=== PATIENT | female | born 1975 | race Caucasian/White ===

== ENCOUNTER 2016-12-25 23:05 | Emergency (ER) | payer MEDICAID, MEDICARE ==
[~2016-12-25 23:05] MED LIST: ACETYLCYSTEINE IV ONE; DEXTROSE 5% IV ONE; WATER IV ONE
[2016-12-25] MEDS ORDERED: Acetylcysteine 20% 200 MG/ML 30 ML SDV IV ONE (23:35)
[2016-12-25] MEDS ORDERED: Sodium Chloride 0.9% 10 ML Syringe FLUSH PRN (23:35)
[2016-12-25 23:55] LABS: ACETAMINOPHEN 198.7 ug/mL (10.0-30.0)
[2016-12-26 00:01] VITALS: BP 114/75
[2016-12-26] MEDS ORDERED: Sodium Chloride 0.9% 1,000 ML IV SCH (00:15)
--- NOTE | 2016-12-26 01:01 | EDM.PDOC ---
ED HPI Behavioral Health - General Chief Complaint: Behavioral/Psych Stated Complaint: MED [facility] Time Seen by Provider: 12/25/16 23:34 Source: Reports: Patient, EMS Exam Limitations: Reports: Altered mental status - History of Present Illness INITIAL COMMENTS - FREE TEXT/NARRATIVE: This is a 41-year-old white female brought to the emergency department for a drug overdose and self-inflicted laceration to her left wrist. She was found by her boyfriend who called EMS. She allegedly took 20 extra strength Tylenol tablets at 10 PM, or 10 g. She also took 7 tablets of Xanax 1 mg. She lacerated her left forearm. She is very distraught about a significant other. It sounded like she was angry with her or former . EMS noted a lot of bleeding to the wrist and this was controlled by direct pressure. The patient admits she was trying to hurt herself. - SAD Persons Scale (SPS) SPS Sex: Female SPS Age: Between 18-65 Years of Age SPS Depression: Yes SPS Previous Suicide Attempts: No SPS Alcohol Abuse/Drug Abuse: No SPS Rational Thinking Loss: No SPS Social Support Deficit: Yes SPS Organized Suicide Plan: Yes SPS No Spouse/Significant Other: No SPS Sickness: No SPS Sad Person Scale Score: 3 - Related Data Allergies Allergy/AdvReac Type Severity Reaction Status Date / Time pine Allergy Airway Uncoded 12/25/16 23:33 Tightness Home Medications: Home Meds ALPRAZolam [Alprazolam] 1 mg PO BID PRN 04/13/15 [History] Meclizine [Antivert] 25 mg PO TID 04/13/15 [History] Acetaminophen [Tylenol Extra Strength] 500 mg PO ASDIRECTED PRN 12/25/16 [ History] hips, back, and wrist Pain Score (Numeric/FACES): 8 Past Medical History HEENT History: Reports: Impaired vision Gastrointestinal History: Reports: Chronic constipation 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: Musculoskeletal History: Reports: Other (see below) Other Musculoskeletal History: degenerative disc disease Neurological History: Reports: Concussion Psychiatric History: Reports: Anxiety, Depression - Infectious Disease History Infectious Disease History: Reports: Chicken pox - Past Surgical History GI Surgical History: Reports: Cholecystectomy Female Surgical History: Reports: Tubal ligation Musculoskeletal Surgical History: Reports: None Social & Family History - Tobacco Use Smoking Status *Q: Current Every Day Smoker Years of Tobacco use: 17 Packs/Tins Daily: 1 - Caffeine Use Caffeine Use: Reports: Coffee - Recreational Drug Use Recreational Drug Use: No ED ROS GENERAL - Review of Systems Review Of Systems: Unable To Obtain (The patient is moderately sedated so review of systems is unreliable) ED EXAM, BEHAVIORAL HEALTH - Physical Exam Exam: See Below Exam Limited By: Altered mental status General Appearance: WD/WN, lethargic (This lady appears to be moderately sedated she is however able to answer questions), mild distress Eye Exam: bilateral eye: EOMI, PERRL Nose: normal inspection Throat/Mouth: Normal inspection Head: atraumatic Neck: normal inspection Respiratory/Chest: lungs clear Cardiovascular: normal peripheral pulses, regular rate, rhythm, no murmur GI/Abdominal: soft, non tender Back Exam: normal inspection Extremities: other (There is a laceration to the volar surface of the left distal forearm. The laceration is approximately 4 cm long and transverse. It is a the superficial flexor tendons. There is a palpable radial pulse distal to the laceration. The depth of the laceration indicates there would likely be a median nerve injury. The wound is clean. A compression dressing had been previously applied followed by a tourniquet which had cut off circulation to the hand. Removal of the tourniquet resulted in normal blood flow to the hand.) Neurological: abnormal pin prick (Pinprick exam was done which was inconclusive. She does have sensation in the distribution of the median nerve although some areas appear to be somewhat dull and others sharp. There was no definite areas of anesthesia to either the median radial or ulnar nerve distributions. Her level of sedation makes this exam unreliable however) COURSE, BEHAVIORAL HEALTH COMP - Course Vital Signs: Last Vital Signs Temp 36.9 C 12/25/16 23:19 Pulse 80 12/26/16 00:00 Resp 16 12/26/16 00:00 BP 114/75 12/26/16 00:00 Pulse Ox 99 12/26/16 00:00 Orders, Labs, Meds: Active Orders 24 hr Category Date Time Status EKG Documentation Completion [RC] ASDIRECTED Care 12/25/16 23:36 Active Sodium Chloride 0.9% [Normal Saline] 1,000 ml Med 12/26/16 00:15 Active IV ASDIRECTED Sodium Chloride 0.9% [Saline Flush] Med 12/25/16 23:35 Active 10 ml FLUSH ASDIRECTED PRN Saline Lock Insert [OM.PC] Urgent Oth 12/25/16 23:35 Ordered EKG 12 Lead [EK] Urgent Ther 12/25/16 23:35 Ordered Medication Orders Sodium Chloride (Normal Saline) 1,000 mls @ 250 mls/hr IV ASDIRECTED AYESHA Sodium Chloride (Saline Flush) 10 ml FLUSH ASDIRECTED PRN PRN Reason: Keep Vein Open Laboratory Tests 12/25/16 12/25/16 12/25/16 Range/Units 23:35 23:35 23:35 WBC 6.4 (4.5-11.0) K/uL RBC 4.44 (3.30-5.50) M/uL Hgb 13.4 (12.0-15.0) g/dL Hct 40.1 (36.0-48.0) % MCV 90 (80-98) fL MCH 30 (27-31) pg MCHC 33 (32-36) % Plt Count 217 (150-400) K/uL Neut % (Auto) 58 (36-66) % Lymph % (Auto) 32 (24-44) % [place] % (Auto) 8 H (2-6) % Eos % (Auto) 1 L (2-4) % Baso % (Auto) 1 (0-1) % Sodium 141 (140-148) mmol/L Potassium 3.1 L (3.6-5.2) mmol/L Chloride 104 (100-108) mmol/L Carbon Dioxide 24 (21-32) mmol/L Anion Gap 16.1 H (5.0-14.0) mmol/L BUN 13 (7-18) mg/dL Creatinine 0.9 (0.6-1.0) mg/dL Est Cr Clr Drug Dosing 81.39 mL/min Estimated GFR (MDRD) > 60 (>60) Glucose 139 H (74-106) mg/dL Calcium 8.2 L (8.5-10.1) mg/dL Total Bilirubin 0.5 D (0.2-1.0) mg/dL AST 10 L D (15-37) U/L ALT 13 (12-78) U/L Alkaline Phosphatase 54 (46-116) U/L Total Protein 7.3 (6.4-8.2) g/dL Albumin 3.7 (3.4-5.0) g/dL Globulin 3.6 H (2.3-3.5) g/dL Albumin/Globulin Ratio 1.0 L (1.2-2.2) Urine Color Urine Appearance Urine pH (4.5-8.0) Ur Specific Harrison (1.008-1.030) Urine Protein (NEGATIVE) mg/dL Urine Glucose (UA) (NEGATIVE) mg/dL Urine Ketones (NEGATIVE) mg/dL Urine Occult Blood (NEGATIVE) Urine Nitrite (NEGATIVE) Urine Bilirubin (NEGATIVE) Urine Urobilinogen (NORMAL) mg/dL Ur Leukocyte Esterase (NEGATIVE) Urine RBC (0-5) Urine WBC (0-5) Ur Epithelial Cells Amorphous Sediment Urine Bacteria Urine Mucus Salicylates 3.3 (2.0-20.0) mg/dL Urine Opiates Screen (NEGATIVE) Ur Oxycodone Screen (NEGATIVE) Urine Methadone Screen (NEGATIVE) Ur Propoxyphene Screen (NEGATIVE) Acetaminophen 198.7 H (10.0-30.0) ug/mL Ur Barbiturates Screen (NEGATIVE) Ur Tricyclics Screen (NEGATIVE) Ur Phencyclidine Scrn (NEGATIVE) Ur Amphetamine Screen (NEGATIVE) U Methamphetamines Scrn (NEGATIVE) Urine MDMA Screen (NEGATIVE) U Benzodiazepines Scrn (NEGATIVE) U Cocaine Metab Screen (NEGATIVE) U Marijuana (THC) Screen (NEGATIVE) Ethyl Alcohol mg/dL 12/25/16 12/25/16 12/25/16 Range/Units 23:35 23:40 23:40 WBC (4.5-11.0) K/uL RBC (3.30-5.50) M/uL Hgb (12.0-15.0) g/dL Hct (36.0-48.0) % MCV (80-98) fL MCH (27-31) pg MCHC (32-36) % Plt Count (150-400) K/uL Neut % (Auto) (36-66) % Lymph % (Auto) (24-44) % [place] % (Auto) (2-6) % Eos % (Auto) (2-4) % Baso % (Auto) (0-1) % Sodium (140-148) mmol/L Potassium (3.6-5.2) mmol/L Chloride (100-108) mmol/L Carbon Dioxide (21-32) mmol/L Anion Gap (5.0-14.0) mmol/L BUN (7-18) mg/dL Creatinine (0.6-1.0) mg/dL Est Cr Clr Drug Dosing mL/min Estimated GFR (MDRD) (>60) Glucose (74-106) mg/dL Calcium (8.5-10.1) mg/dL Total Bilirubin (0.2-1.0) mg/dL AST (15-37) U/L ALT (12-78) U/L Alkaline Phosphatase (46-116) U/L Total Protein (6.4-8.2) g/dL Albumin (3.4-5.0) g/dL Globulin (2.3-3.5) g/dL Albumin/Globulin Ratio (1.2-2.2) Urine Color Yellow Urine Appearance Slightly cloudy Urine pH 5.0 (4.5-8.0) Ur Specific [place] 1.025 (1.008-1.030) Urine Protein Negative (NEGATIVE) mg/dL Urine Glucose (UA) Normal (NEGATIVE) mg/dL Urine Ketones Negative (NEGATIVE) mg/dL Urine Occult Blood Negative (NEGATIVE) Urine Nitrite Negative (NEGATIVE) Urine Bilirubin Small (NEGATIVE) Urine Urobilinogen 1 (NORMAL) mg/dL Ur Leukocyte Esterase Negative (NEGATIVE) Urine RBC 0-5 (0-5) Urine WBC 0-5 (0-5) Ur Epithelial Cells Few Amorphous Sediment Few Urine Bacteria Many Urine Mucus Many Salicylates (2.0-20.0) mg/dL Urine Opiates Screen Negative (NEGATIVE) Ur Oxycodone Screen Negative (NEGATIVE) Urine Methadone Screen Negative (NEGATIVE) Ur Propoxyphene Screen Negative (NEGATIVE) Acetaminophen (10.0-30.0) ug/mL Ur Barbiturates Screen Negative (NEGATIVE) Ur Tricyclics Screen Negative (NEGATIVE) Ur Phencyclidine Scrn Negative (NEGATIVE) Ur Amphetamine Screen Negative (NEGATIVE) U Methamphetamines Scrn Negative (NEGATIVE) Urine MDMA Screen Negative (NEGATIVE) U Benzodiazepines Scrn Positive H (NEGATIVE) U Cocaine Metab Screen Negative (NEGATIVE) U Marijuana (THC) Screen Negative (NEGATIVE) Ethyl Alcohol < 3 mg/dL Medications Generic Name Dose Route Start Last Admin Trade Name Freq PRN Reason Stop Dose Admin Sodium Chloride 1,000 mls @ 250 mls/hr 12/26/16 00:15 Normal Saline IV ASDIRECTED AYESHA Sodium Chloride 10 ml 12/25/16 23:35 Saline Flush FLUSH ASDIRECTED PRN Keep Vein Open Discontinued Medications Generic Name Dose Route Start Last Admin Trade Name Deisi PRN Reason Stop Dose Admin Acetylcysteine 10,000 mg/ 300 mls @ 300 mls/hr 12/25/16 23:00 12/26/16 00:10 Dextrose/Water IV 12/25/16 23:59 300 mls/hr ONETIME ONE Administration Re-Assessment/Re-Exam: Initial acetaminophen level of 298 at approximately 2 hours post ingestion. This suggests her peak level will be substantially higher. This puts her in the toxic range. I spoke with the on-call orthopedic surgeon, the ER doctor and hospitalist at [facility] in [place]. It is felt that the tendon and possible nerve lacerations can be repaired later. She will need hospitalization for the acetaminophen overdose as well as the suicide attempt. We have started a bolus of an acetyl cysteine 140mg/kg for 10 g here in the ER. I don't anticipate severe liver damage so I think the [facility] should be able to manage her. This was discussed with . I also felt that it would be best for her injuries to be examined by a someone with more expertise than myself. Departure - Departure Time of Disposition: 01:06 Disposition: DC/Tfer to Acute Hospital 02 Condition: fair Clinical Impression: Acetaminophen overdose, Laceration of wrist with tendon involvement, Suicide attempt Forms: ED Department Discharge - My Orders Last 24 Hours: My Active Orders 12/25/16 23:35 Sodium Chloride 0.9% [Saline Flush] 10 ml FLUSH ASDIRECTED PRN Saline Lock Insert [OM.PC] Urgent EKG 12 Lead [EK] Urgent 12/25/16 23:36 EKG Documentation Completion [RC] ASDIRECTED 12/26/16 00:15 Sodium Chloride 0.9% [Normal Saline] 1,000 ml IV ASDIRECTED - Assessment/Plan Last 24 Hours: My Active Orders 12/25/16 23:35 Sodium Chloride 0.9% [Saline Flush] 10 ml FLUSH ASDIRECTED PRN Saline Lock Insert [OM.PC] Urgent EKG 12 Lead [EK] Urgent 12/25/16 23:36 EKG Documentation Completion [RC] ASDIRECTED 12/26/16 00:15 Sodium Chloride 0.9% [Normal Saline] 1,000 ml IV ASDIRECTED
== END 2016-12-26 01:24 ==
LOC: JP.ED 23:05
DX: T39.1X2A Poisoning by 4-Aminophenol derivatives, intentional self-harm, initial encounter (principal); T42.4X2A Poisoning by benzodiazepines, intentional self-harm, initial encounter; S66.022A Laceration of long flexor muscle, fascia and tendon of left thumb at wrist and hand level, initial encounter; S61.512A Laceration without foreign body of left wrist, initial encounter; X78.9XXA Intentional self-harm by unspecified sharp object, initial encounter; F17.210 Nicotine dependence, cigarettes, uncomplicated; Z90.89 Acquired absence of other organs; Z98.51 Tubal ligation status; W26.0XXA Contact with knife, initial encounter; F41.9 Anxiety disorder, unspecified; F32.9 Major depressive disorder, single episode, unspecified; K59.09 Other constipation; Z79.899 Other long term (current) drug therapy; Z91.048 Other nonmedicinal substance allergy status
CPT/HCPCS: 36415; 80053; 80305; 81001; 85025; 93005; 93010; 96360; 99285; G0480; J7040; J7060

== ENCOUNTER 2017-02-26 23:25 | Emergency (ER) | payer MEDICAID, MEDICARE ==
[2017-02-27] MEDS ORDERED: Ondansetron 4 MG/2 ML SDV IVPUSH ONE (01:13)
[2017-02-27] MEDS ORDERED: Sodium Chloride 0.9% 10 ML Syringe FLUSH PRN (01:13)
[2017-02-27] MEDS ORDERED: HYDROmorphone 1 MG/ML Syringe IVPUSH ONE ×3 (01:13→07:35)
[2017-02-27] MEDS ORDERED: Sodium Chloride 0.9% 1,000 ML IV SCH (01:15)
--- NOTE | 2017-02-27 01:18 | EDM.PDOC ---
ED HPI GENERAL MEDICAL PROBLEM - General Chief Complaint: Abdominal Pain Stated Complaint: FEVER NOT FEELING WELL Time Seen by Provider: 02/27/17 01:02 Source of Information: Reports: Patient, Family, RN Notes Reviewed History Limitations: Reports: No Limitations - History of Present Illness INITIAL COMMENTS - FREE TEXT/NARRATIVE: 41-year-old female presents emergency department today complaint abdominal pain , she has had ongoing abdominal pain and bloody diarrhea for the last 3 weeks she has been evaluated by her primary care provider CT scan and colonoscopy have been ordered unfortunately they were initially denied by insurance and are currently being reviewed. She presents emergency department today because she's developed fever over the last couple days and the pain is getting worse and has developed nausea. 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: Musculoskeletal History: Reports: Back Pain, Chronic Other Musculoskeletal History: degenerative disc disease Neurological History: Reports: Concussion Psychiatric History: Reports: Anxiety, Depression - Infectious Disease History Infectious Disease History: Reports: Chicken Pox - Past Surgical History GI Surgical History: Reports: Cholecystectomy, Colonoscopy, Polypectomy Other GI Surgeries/Procedures: 17 polypes removed 10 years ago Female Surgical History: Reports: Tubal Ligation Social & Family History - Tobacco Use Smoking Status *Q: Former Smoker Years of Tobacco use: 17 Packs/Tins Daily: 1 Used Tobacco, but Quit: Yes Month Tobacco Last Used: 2 months ago - Caffeine Use Caffeine Use: Reports: Coffee, Soda - Recreational Drug Use Recreational Drug Use: No ED ROS GENERAL - Review of Systems Review Of Systems: See Below Constitutional: Reports: Fever, Chills, Weakness HEENT: Reports: No Symptoms Respiratory: Reports: No Symptoms Cardiovascular: Reports: No Symptoms GI/Abdominal: Reports: Abdominal Pain, Bloody Stool, Diarrhea, Nausea. Denies: Vomiting : Reports: No Symptoms Musculoskeletal: Reports: No Symptoms Skin: Reports: No Symptoms Neurological: Reports: No Symptoms ED EXAM, GI/ABD - Physical Exam Exam: See Below Text/Narrative:: General: Female, moderate discomfort secondary to abdominal pain, alert and oriented x3 HEENT: head is atraumatic normocephalic, eyes pupils equal round reactive to light, sclera clear no conjunctivitis appreciated. Ears tympanic membranes clear and osei landmarks and light reflex are present bilaterally canals are clear. Nose no septal deviation, nares are clear, no blood present. Mouth mucosa is moist and pink no erythema or exudate noted in soft palate, tongue is midline uvula is midline, dentition is intact. Neck: Supple no thyromegaly no tracheal deviation. Nodes: Cervical nodes subclavicular nodes nontender no palpable lymphadenopathy noted. Lungs: clear to auscultation bilaterally with symmetrical respirations, no adventitious noise appreciated. CV: Regular rate and rhythm S1 and S2 appreciated no murmurs rubs or gallops noted. Abdomen: Soft, generalized tenderness to palpation, no palpable masses or organomegaly appreciated, no distention no guarding bowel sounds are present, surgical scar is clean dry and intact. Neuro: Cranial nerves II through XII grossly intact Skin: Warm and dry, intact Extremities: No lower extremity edema appreciated Course - Vital Signs Last Recorded V/S: Last Vital Signs Temp 98.1 F 02/27/17 06:59 Pulse 103 H 02/27/17 06:59 Resp 16 02/27/17 06:59 BP 96/60 02/27/17 06:59 Pulse Ox 97 02/27/17 06:59 - Orders/Labs/Meds Orders: Active Orders 24 hr Category Date Time Status Peripheral IV Care [RC] . DIRECTED Care 02/27/17 01:14 Active Abdomen Pelvis w Cont [CT] Urgent Exams 02/27/17 01:13 Taken CULTURE BLOOD [BC] Urgent Lab 02/27/17 03:05 Received CULTURE BLOOD [BC] Urgent Lab 02/27/17 03:10 Received CULTURE STOOL + SHIGATOX [RM] Stat Lab 02/27/17 03:44 Received GIARDIA LAMBLIA ANTIGEN Stat Lab 02/27/17 03:44 Received Iopamidol [Isovue-300 (61%)] Med 02/27/17 02:11 Active 100 ml IV . DIRECTED PRN Sodium Chloride 0.9% [Normal Saline] 1,000 ml Med 02/27/17 01:15 Active IV ASDIRECTED Sodium Chloride 0.9% [Normal Saline] 72 ml Med 02/27/17 02:15 Active IV ASDIRECTED Sodium Chloride 0.9% [Saline Flush] Med 02/27/17 01:13 Active 10 ml FLUSH ASDIRECTED PRN Blood Culture x2 Reflex Set [OM.PC] Urgent Ot 02/27/17 02:58 Ordered ED Antiemetic Medication Reflex [OM.PC] Click to Edit Ot 02/27/17 01:13 Ordered ED Pain Medications Reflex [OM.PC] Click to Edit Ot 02/27/17 01:13 Ordered Peripheral IV Insertion Adult [OM.PC] Urgent Ot 02/27/17 01:13 Ordered Medication Orders Sodium Chloride (Normal Saline) 1,000 mls @ 500 mls/hr IV ASDIRECTED [facility] Last Admin: 02/27/17 02:01 Dose: 500 mls/hr Sodium Chloride (Normal Saline) 72 mls @ 3 mls/sec IV ASDIRECTED AYESHA Last Admin: 02/27/17 02:22 Dose: 3 mls/sec Iopamidol (Isovue-300 (61%)) 100 ml IV . DIRECTED PRN PRN Reason: RADIOLOGY EXAM Stop: 02/28/17 02:12 Last Admin: 02/27/17 02:22 Dose: 100 ml Sodium Chloride (Saline Flush) 10 ml FLUSH ASDIRECTED PRN PRN Reason: Keep Vein Open Last Admin: 02/27/17 03:03 Dose: 10 ml Labs: Laboratory Tests 02/27/17 02/27/17 02/27/17 Range/Units 01:13 01:13 01:13 WBC 10.0 (4.5-11.0) K/uL RBC 3.48 (3.30-5.50) M/uL Hgb 10.3 L D (12.0-15.0) g/dL Hct 31.1 L (36.0-48.0) % MCV 89 (80-98) fL MCH 30 (27-31) pg MCHC 33 (32-36) % Plt Count 316 (150-400) K/uL Add Manual Diff Yes Neutrophils % (Manual) 57 (36-66) % Band Neutrophils % 13 H (5-11) % Lymphocytes % (Manual) 15 L (24-44) % Monocytes % (Manual) 13 H (2-6) % Eosinophils % (Manual) 2 (2-4) % Sodium 139 L (140-148) mmol/L Potassium 2.8 L* (3.6-5.2) mmol/L Chloride 102 (100-108) mmol/L Carbon Dioxide 25 (21-32) mmol/L Anion Gap 14.8 H (5.0-14.0) mmol/L BUN 8 (7-18) mg/dL Creatinine 0.6 (0.6-1.0) mg/dL Est Cr Clr Drug Dosing 124.70 mL/min Estimated GFR (MDRD) > 60 (>60) Glucose 91 (74-106) mg/dL Lactic Acid 0.8 (0.4-2.0) mmol/L Calcium 7.3 L (8.5-10.1) mg/dL Total Bilirubin 0.3 (0.2-1.0) mg/dL AST 12 L (15-37) U/L ALT 10 L (12-78) U/L Alkaline Phosphatase 60 (46-116) U/L Total Protein 5.1 L (6.4-8.2) g/dL Albumin 1.7 L (3.4-5.0) g/dL Globulin 3.4 (2.3-3.5) g/dL Albumin/Globulin Ratio 0.5 L (1.2-2.2) Lipase 56 L (73-393) U/L Urine Color Urine Appearance Urine pH (4.5-8.0) Ur Specific [place] (1.008-1.030) Urine Protein (NEGATIVE) mg/dL Urine Glucose (UA) (NEGATIVE) mg/dL Urine Ketones (NEGATIVE) mg/dL Urine Occult Blood (NEGATIVE) Urine Nitrite (NEGATIVE) Urine Bilirubin (NEGATIVE) Urine Urobilinogen (NORMAL) mg/dL Ur Leukocyte Esterase (NEGATIVE) Urine RBC (0-5) Urine WBC (0-5) Ur Epithelial Cells Amorphous Sediment Urine Bacteria Urine Mucus Urine HCG, Qual 02/27/17 02/27/17 Range/Units 01:55 01:55 WBC (4.5-11.0) K/uL RBC (3.30-5.50) M/uL Hgb (12.0-15.0) g/dL Hct (36.0-48.0) % MCV (80-98) fL MCH (27-31) pg MCHC (32-36) % Plt Count (150-400) K/uL Add Manual Diff Neutrophils % (Manual) (36-66) % Band Neutrophils % (5-11) % Lymphocytes % (Manual) (24-44) % Monocytes % (Manual) (2-6) % Eosinophils % (Manual) (2-4) % Sodium (140-148) mmol/L Potassium (3.6-5.2) mmol/L Chloride (100-108) mmol/L Carbon Dioxide (21-32) mmol/L Anion Gap (5.0-14.0) mmol/L BUN (7-18) mg/dL Creatinine (0.6-1.0) mg/dL Est Cr Clr Drug Dosing mL/min Estimated GFR (MDRD) (>60) Glucose (74-106) mg/dL Lactic Acid (0.4-2.0) mmol/L Calcium (8.5-10.1) mg/dL Total Bilirubin (0.2-1.0) mg/dL AST (15-37) U/L ALT (12-78) U/L Alkaline Phosphatase (46-116) U/L Total Protein (6.4-8.2) g/dL Albumin (3.4-5.0) g/dL Globulin (2.3-3.5) g/dL Albumin/Globulin Ratio (1.2-2.2) Lipase (73-393) U/L Urine Color Yellow Urine Appearance Clear Urine pH 6.0 (4.5-8.0) Ur Specific [place] 1.010 (1.008-1.030) Urine Protein Negative (NEGATIVE) mg/dL Urine Glucose (UA) Normal (NEGATIVE) mg/dL Urine Ketones Negative (NEGATIVE) mg/dL Urine Occult Blood Negative (NEGATIVE) Urine Nitrite Negative (NEGATIVE) Urine Bilirubin Negative (NEGATIVE) Urine Urobilinogen Normal (NORMAL) mg/dL Ur Leukocyte Esterase Negative (NEGATIVE) Urine RBC 0-5 (0-5) Urine WBC 0-5 (0-5) Ur Epithelial Cells Few Amorphous Sediment Not seen Urine Bacteria Few Urine Mucus Not seen Urine HCG, Qual Negative Meds: Medications Generic Name Dose Route Start Last Admin Trade Name Freq PRN Reason Stop Dose Admin Sodium Chloride 1,000 mls @ 500 mls/hr 02/27/17 01:15 02/27/17 02:01 Normal Saline IV 500 mls/hr ASDIRECTED AYESHA Administration Sodium Chloride 72 mls @ 3 mls/sec 02/27/17 02:15 02/27/17 02:22 Normal Saline IV 3 mls/sec ASDIRECTED AYESHA Administration Iopamidol 100 ml 02/27/17 02:11 02/27/17 02:22 Isovue-300 (61%) IV 02/28/17 02:12 100 ml . DIRECTED PRN Administration RADIOLOGY EXAM Sodium Chloride 10 ml 02/27/17 01:13 02/27/17 03:03 Saline Flush FLUSH 10 ml ASDIRECTED PRN Administration Keep Vein Open Discontinued Medications Generic Name Dose Route Start Last Admin Trade Name Freq PRN Reason Stop Dose Admin Hydromorphone HCl 0.5 mg 02/27/17 01:13 02/27/17 02:04 Dilaudid IVPUSH 02/27/17 01:14 0.5 mg .ONETIME ONE Administration Hydromorphone HCl 1 mg 02/27/17 03:13 02/27/17 03:21 Dilaudid IVPUSH 02/27/17 03:14 1 mg ONETIME ONE Administration Potassium Chloride 40 meq/ 100 mls @ 25 mls/hr 02/27/17 02:46 02/27/17 02:59 Premix IV 02/27/17 06:45 25 mls/hr ONETIME ONE Administration Lidocaine HCl 4 ml 02/27/17 02:48 02/27/17 02:59 Xylocaine-Mpf 1% INJECT 02/27/17 02:49 4 ml ONETIME ONE Administration Methylprednisolone Sodium Succinate 125 mg 02/27/17 07:14 Solu-Medrol IVPUSH 02/27/17 07:15 ONETIME ONE Ondansetron HCl 4 mg 02/27/17 01:13 02/27/17 02:02 Zofran IVPUSH 02/27/17 01:14 4 mg ONETIME ONE Administration Potassium Chloride 40 meq 02/27/17 02:46 02/27/17 03:01 Klor-Con M20 PO 02/27/17 02:47 40 meq ONETIME ONE Administration Departure - Departure Time of Disposition: 07:23 Disposition: Home, Self-Care 01 Condition: good Clinical Impression: Bloody diarrhea - Discharge Information Forms: ED Department Discharge Additional Instructions: Please start the prednisone tomorrow this is a tapered dose for about 3 weeks, use Zofran as needed for nausea and vomiting symptoms, use hydrocodone as needed for pain control, you have a colonoscopy set up for 7 AM Wednesday morning, please start your colonoscopy prep today, call returned at emergency department with worsening of symptoms - My Orders Last 24 Hours: My Active Orders 02/27/17 01:13 Abdomen Pelvis w Cont [CT] Urgent Sodium Chloride 0.9% [Saline Flush] 10 ml FLUSH ASDIRECTED PRN ED Antiemetic Medication Reflex [OM.PC] Click to Edit ED Pain Medications Reflex [OM.PC] Click to Edit Peripheral IV Insertion Adult [OM.PC] Urgent 02/27/17 01:14 Peripheral IV Care [RC] . DIRECTED 02/27/17 01:15 Sodium Chloride 0.9% [Normal Saline] 1,000 ml IV ASDIRECTED 02/27/17 02:11 Iopamidol [Isovue-300 (61%)] 100 ml IV . DIRECTED PRN 02/27/17 02:15 Sodium Chloride 0.9% [Normal Saline] 72 ml IV ASDIRECTED 02/27/17 02:58 Blood Culture x2 Reflex Set [OM.PC] Urgent 02/27/17 03:05 CULTURE BLOOD [BC] Urgent 02/27/17 03:10 CULTURE BLOOD [BC] Urgent 02/27/17 03:44 CULTURE STOOL + SHIGATOX [RM] Stat GIARDIA LAMBLIA ANTIGEN Stat - Assessment/Plan Last 24 Hours: My Active Orders 02/27/17 01:13 Abdomen Pelvis w Cont [CT] Urgent Sodium Chloride 0.9% [Saline Flush] 10 ml FLUSH ASDIRECTED PRN ED Antiemetic Medication Reflex [OM.PC] Click to Edit ED Pain Medications Reflex [OM.PC] Click to Edit Peripheral IV Insertion Adult [OM.PC] Urgent 02/27/17 01:14 Peripheral IV Care [RC] . DIRECTED 02/27/17 01:15 Sodium Chloride 0.9% [Normal Saline] 1,000 ml IV ASDIRECTED 02/27/17 02:11 Iopamidol [Isovue-300 (61%)] 100 ml IV . DIRECTED PRN 02/27/17 02:15 Sodium Chloride 0.9% [Normal Saline] 72 ml IV ASDIRECTED 02/27/17 02:58 Blood Culture x2 Reflex Set [OM.PC] Urgent 02/27/17 03:05 CULTURE BLOOD [BC] Urgent 02/27/17 03:10 CULTURE BLOOD [BC] Urgent 02/27/17 03:44 CULTURE STOOL + SHIGATOX [RM] Stat GIARDIA LAMBLIA ANTIGEN Stat Plan: Assessment Acuity = acute Site and laterality = abdominal pain with bloody diarrhea Etiology = suspicious for ulcerative colitis Manifestations = nausea and vomiting Location of injury = home Lab values = hemoglobin low at 10.3 consistent normochromic anemia sodium low at 139 consistent hyponatremia potassium low at 2.8 hypokalemia albumin low at 1.7 consistent hypoalbuminemia, urinalysis unremarkable CT scan shows acute inflammatory infectious etiology involving large bowel predominantly involving sigmoid and descending colon mild degree involvement extends in the rectum consideration of ulcerative colitis in the differential, few WBCs appreciated in the stool sample, Clostridium difficile is negative, Giardia is pending, open parasites are pending CT scan also shows asymmetric sclerosis of the SI joints concern for development of early ankylosing spondylosis Plan Discussed case with Dr. Bradley surgeon unit controller recommended colonoscopy she will be set up for colonoscopy on Wednesday morning at 7 AM she'll start the prep today, discussed case with hospitalist unit controller recommend starting steroids was given 125 mg Solu-Medrol IV today we'll start a prednisone taper tomorrow 60 mg 5 days then 40 mg 7 days 20 mg for 7 days and stop she is also provided Zofran and hydrocodone total #30 tablets for the abdominal pain and nausea. The hospital is currently on red alerts I did offer hospital admission unfortunately that cannot be done here would require transfer she declined felt she could do treatment at home Patient was in agreement with the plan all questions were answered, they were instructed to return to the emergency department or call for worsening symptoms. This note was dictated using [employer] voice recognition software please call with any questions.
[2017-02-27] MEDS ORDERED: Iopamidol 612 MG/ML 100 ML Bottle IV PRN (02:11)
[2017-02-27] MEDS ORDERED: Potassium Chloride 20 MEQ Tab.ER PO ONE (02:46)
[2017-02-27] MEDS ORDERED: Potassium Chloride 40 MEQ in Premix Bag 1 BAG IV ONE (02:46)
[2017-02-27 07:02] VITALS: BP 96/60
[2017-02-27] MEDS ORDERED: methylPREDNISolone Sodium Succinate 125 MG/2 ML SDV IVPUSH ONE (07:14)
[2017-02-27] MEDS ORDERED: HYDROmorphone 1 MG/ML Syringe ONE (07:30)
== END 2017-02-27 07:48 | disposition home or self-care (01) ==
LOC: JP.ED 23:25
DX: R19.7 Diarrhea, unspecified (principal); F41.9 Anxiety disorder, unspecified; F32.9 Major depressive disorder, single episode, unspecified; Z90.49 Acquired absence of other specified parts of digestive tract; Z98.51 Tubal ligation status; Z87.891 Personal history of nicotine dependence; Z91.018 Allergy to other foods
CPT/HCPCS: 36415; 74177; 80053; 81001; 81025; 83605; 83690; 85025; 87040; 87046; 87329; 87493; 87899; 89055; 96361; 96374; 96375; 96376; 99284; A9270; J1170; J2405; J2930; J3480; J7030; J7040; J7050; Q9967

== ENCOUNTER 2017-03-01 06:48 | Day surgery (SDC) | payer MEDICAID, MEDICARE ==
[2017-03-01] MEDS ORDERED: Lactated Ringers 1,000 ML IV SCH (08:00)
[2017-03-01] MEDS ORDERED: Propofol 200 MG/20 ML SDV ONE (08:31)
[2017-03-01] MEDS ORDERED: fentaNYL 100 MCG/2 ML SDV ONE (08:31)
[2017-03-01] MEDS ORDERED: Midazolam 1 MG/ML 2 ML SDV ONE (08:32)
[2017-03-01 11:17] VITALS: BP 106/65
--- NOTE | 2017-03-01 11:36 | OR ---
DATE OF PROCEDURE: 03/01/2017 PREOPERATIVE DIAGNOSIS: Bloody diarrhea. POSTOPERATIVE DIAGNOSIS: Severe colitis consistent with ulcerative colitis. PROCEDURE: Colonoscopy to the splenic flexure with biopsy of the colon. ANESTHESIA: IV anesthesia with monitored anesthesia care. INDICATIONS: This 41-year-old white female for weeks has had bloody diarrhea. She has been referred for a colonoscopy but apparently her insurance has not approved it. She presented to the emergency room over the weekend and a request was made then for a colonoscopy. She was scheduled for this today. I counseled her for a colonoscopy with possible biopsy and/or polypectomy including risks and alternatives, and she gave her informed consent to proceed. DESCRIPTION OF PROCEDURE: The patient was placed in the left lateral decubitus position. IV anesthesia was administered by the Anesthesia Service. Time-out was held. A rectal exam was performed, which was unremarkable. The flexible video Olympus colonoscope was introduced through her anus, up her rectum, and out her colon. We went up about as high as the splenic flexure. There was colitis throughout the entire area. In places, it was very severe. There were areas of absent mucosa consistent with ulcerative colitis. We obtained multiple biopsies of the colon. The scope was retroflexed in the rectum with the distal rectum showing that colitis. The scope was straightened and removed. She tolerated the procedure well. She was started on prednisone in the emergency room. We will continue that at 40 mg a day. We gave her 14 pills and she also was started on mesalamine 1000 mg p.o. q.i.d. for a month with a couple of refills. She is going to see her primary care provider on of this week and we will try to make an appointment for her with Gastroenterology. Miguel Bradley MD /[id number] [email or web address]
== END 2017-03-01 11:15 | disposition home or self-care (01) ==
LOC: JP.SDS 06:48
PROVIDERS: ATTEND Surgery
DX: K52.9 Noninfective gastroenteritis and colitis, unspecified (principal); K63.0 Abscess of intestine; Z91.018 Allergy to other foods; F32.9 Major depressive disorder, single episode, unspecified; F41.9 Anxiety disorder, unspecified; Z87.891 Personal history of nicotine dependence
CPT/HCPCS: 36415; 45380; 80053; 85027; J2250; J2704; J3010; J7120; 88305

== ENCOUNTER 2017-03-25 20:56 | Emergency (ER) | payer MEDICAID ==
[2017-03-25 21:57] VITALS: BP 114/58
[2017-03-25] MEDS ORDERED: Sodium Chloride 0.9% 10 ML Syringe FLUSH PRN (22:35)
[2017-03-25] MEDS ORDERED: Ondansetron 4 MG/2 ML SDV IVPUSH ONE (22:37)
--- NOTE | 2017-03-25 22:39 | EDM.PDOC ---
ED HPI GENERAL MEDICAL PROBLEM - General Chief Complaint: Gastrointestinal Problem Stated Complaint: ULCERTIVE COLITIS Time Seen by Provider: 03/25/17 22:25 Source of Information: Reports: Patient, RN Notes Reviewed History Limitations: Reports: No Limitations - History of Present Illness INITIAL COMMENTS - FREE TEXT/NARRATIVE: 41-year-old female presents emergency department day complaint of generalized illness, she does have a known history of ulcerative colitis new diagnosis has been having difficulty with side effects of medications she states over the last couple days she's progressively gotten worse unable to eat and drink well does feel nauseated denies any fevers shortness of breath or chest pain Abdomen Pain Score (Numeric/FACES): 8 - Related Data Allergies Allergy/AdvReac Type Severity Reaction Status Date / Time pine Allergy Airway Uncoded 03/25/17 22:20 Tightness Home Meds: Home Meds ALPRAZolam [Alprazolam] 1 mg PO BID PRN 04/13/15 [History] Naproxen [Naprosyn] 500 mg PO BID 02/27/17 [History] busPIRone [Buspar] 22 mg PO BID 02/27/17 [History] Hydrocodone/Acetaminophen [Hydrocodon-Acetaminophen 5-325] 1 each PO Q8H PRN 09/05 [History] Ondansetron [Zofran ODT] 4 mg PO Q6H PRN 03/01/17 [History] predniSONE [Prednisone] 20 mg PO ASDIRECTED 03/01/17 [History] Past Medical History HEENT History: Reports: Impaired Vision Gastrointestinal History: Reports: Chronic Constipation, Pancreatitis, Other ( See Below) Other Gastrointestinal History: Ulcerative colitis 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: Musculoskeletal History: Reports: Back Pain, Chronic Other Musculoskeletal History: degenerative disc disease Neurological History: Reports: Concussion, Vertigo Psychiatric History: Reports: Anxiety, Depression Hematologic History: Reports: Anemia - Infectious Disease History Infectious Disease History: Reports: Chicken Pox - Past Surgical History HEENT Surgical History: Reports: Oral Surgery GI Surgical History: Reports: Cholecystectomy, Colonoscopy, Polypectomy Other GI Surgeries/Procedures: 17 polypes removed 10 years ago Female Surgical History: Reports: Tubal Ligation Neurological Surgical History: Reports: None Social & Family History - Tobacco Use Smoking Status *Q: Current Status Unknown Years of Tobacco use: 25 Packs/Tins Daily: 1 Used Tobacco, but Quit: Yes Month Tobacco Last Used: november - Caffeine Use Caffeine Use: Reports: None - Recreational Drug Use Recreational Drug Use: No ED ROS GENERAL - Review of Systems Review Of Systems: See Below Constitutional: Reports: Weakness, Fatigue, Night Sweats. Denies: Fever, Chills HEENT: Reports: No Symptoms Respiratory: Reports: No Symptoms Cardiovascular: Reports: No Symptoms GI/Abdominal: Reports: Abdominal Pain, Nausea, Vomiting : Reports: No Symptoms Musculoskeletal: Reports: No Symptoms Skin: Reports: No Symptoms Neurological: Reports: No Symptoms ED EXAM, GENERAL - Physical Exam Exam: See Below Free Text/Narrative:: General: Female, not in any distress, alert and oriented x3 HEENT: head is atraumatic normocephalic, eyes pupils equal round reactive to light, sclera clear no conjunctivitis appreciated. Ears tympanic membranes clear and osei landmarks and light reflex are present bilaterally canals are clear. Nose no septal deviation, nares are clear, no blood present. Mouth mucosa is moist and pink no erythema or exudate noted in soft palate, tongue is midline uvula is midline, dentition is intact. Neck: Supple no thyromegaly no tracheal deviation. Nodes: Cervical nodes subclavicular nodes nontender no palpable lymphadenopathy noted. Lungs: clear to auscultation bilaterally with symmetrical respirations, no adventitious noise appreciated. CV: Regular rate and rhythm S1 and S2 appreciated no murmurs rubs or gallops noted. Abdomen: Soft, nontender, no palpable masses or organomegaly appreciated, no distention no guarding bowel sounds are present, . Neuro: Cranial nerves II through XII grossly intact Skin: Warm and dry, intact Extremities: +2 pitting edema bilaterally Course - Vital Signs Last Recorded V/S: Last Vital Signs Temp 98.8 F 03/25/17 22:17 Pulse 95 03/25/17 22:17 Resp 13 03/25/17 22:17 BP 114/58 L 03/25/17 22:17 Pulse Ox 99 03/25/17 22:17 - Orders/Labs/Meds Orders: Active Orders 24 hr Category Date Time Status Peripheral IV Care [RC] . DIRECTED Care 03/25/17 22:36 Active Lactated Ringers [Ringers, Lactated] 1,000 ml Med 03/25/17 22:45 Active IV ASDIRECTED Sodium Chloride 0.9% [Saline Flush] Med 03/25/17 22:35 Active 10 ml FLUSH ASDIRECTED PRN Peripheral IV Insertion Adult [OM.PC] Urgent Oth 03/25/17 22:35 Ordered Medication Orders Lactated Ringer's (Ringers, Lactated) 1,000 mls @ 999 mls/hr IV ASDIRECTED AYESHA Last Admin: 03/25/17 23:20 Dose: 999 mls/hr Sodium Chloride (Saline Flush) 10 ml FLUSH ASDIRECTED PRN PRN Reason: Keep Vein Open Last Admin: 03/25/17 23:20 Dose: 10 ml Labs: Laboratory Tests 03/25/17 03/25/17 03/25/17 Range/Units 22:35 22:35 22:35 WBC 11.6 H (4.5-11.0) K/uL RBC 3.33 (3.30-5.50) M/uL Hgb 9.2 L (12.0-15.0) g/dL Hct 30.1 L (36.0-48.0) % MCV 90 (80-98) fL MCH 28 (27-31) pg MCHC 31 L (32-36) % Plt Count 359 (150-400) K/uL Neut % (Auto) 58 (36-66) % Lymph % (Auto) 21 L (24-44) % [place] % (Auto) 11 H (2-6) % Eos % (Auto) 8 H (2-4) % Baso % (Auto) 1 (0-1) % Sodium 137 L (140-148) mmol/L Potassium 3.1 L (3.6-5.2) mmol/L Chloride 104 (100-108) mmol/L Carbon Dioxide 27 (21-32) mmol/L Anion Gap 9.1 (5.0-14.0) mmol/L BUN 8 (7-18) mg/dL Creatinine 0.7 (0.6-1.0) mg/dL Est Cr Clr Drug Dosing 104.93 mL/min Estimated GFR (MDRD) > 60 (>60) Glucose 93 (74-106) mg/dL Lactic Acid 0.8 (0.4-2.0) mmol/L Calcium 7.5 L (8.5-10.1) mg/dL Total Bilirubin 0.2 (0.2-1.0) mg/dL AST 11 L (15-37) U/L ALT 6 L (12-78) U/L Alkaline Phosphatase 69 (46-116) U/L Total Protein 6.1 L (6.4-8.2) g/dL Albumin 1.8 L (3.4-5.0) g/dL Globulin 4.3 H (2.3-3.5) g/dL Albumin/Globulin Ratio 0.4 L (1.2-2.2) Urine Color Urine Appearance Urine pH (4.5-8.0) Ur Specific [place] (1.008-1.030) Urine Protein (NEGATIVE) mg/dL Urine Glucose (UA) (NEGATIVE) mg/dL Urine Ketones (NEGATIVE) mg/dL Urine Occult Blood (NEGATIVE) Urine Nitrite (NEGATIVE) Urine Bilirubin (NEGATIVE) Urine Urobilinogen (NORMAL) mg/dL Ur Leukocyte Esterase (NEGATIVE) Urine RBC (0-5) Urine WBC (0-5) Ur Epithelial Cells Amorphous Sediment Urine Bacteria Urine Mucus 03/25/17 Range/Units 23:33 WBC (4.5-11.0) K/uL RBC (3.30-5.50) M/uL Hgb (12.0-15.0) g/dL Hct (36.0-48.0) % MCV (80-98) fL MCH (27-31) pg MCHC (32-36) % Plt Count (150-400) K/uL Neut % (Auto) (36-66) % Lymph % (Auto) (24-44) % [place] % (Auto) (2-6) % Eos % (Auto) (2-4) % Baso % (Auto) (0-1) % Sodium (140-148) mmol/L Potassium (3.6-5.2) mmol/L Chloride (100-108) mmol/L Carbon Dioxide (21-32) mmol/L Anion Gap (5.0-14.0) mmol/L BUN (7-18) mg/dL Creatinine (0.6-1.0) mg/dL Est Cr Clr Drug Dosing mL/min Estimated GFR (MDRD) (>60) Glucose (74-106) mg/dL Lactic Acid (0.4-2.0) mmol/L Calcium (8.5-10.1) mg/dL Total Bilirubin (0.2-1.0) mg/dL AST (15-37) U/L ALT (12-78) U/L Alkaline Phosphatase (46-116) U/L Total Protein (6.4-8.2) g/dL Albumin (3.4-5.0) g/dL Globulin (2.3-3.5) g/dL Albumin/Globulin Ratio (1.2-2.2) Urine Color Yellow Urine Appearance Clear Urine pH 6.0 (4.5-8.0) Ur Specific [place] 1.010 (1.008-1.030) Urine Protein Negative (NEGATIVE) mg/dL Urine Glucose (UA) Normal (NEGATIVE) mg/dL Urine Ketones Negative (NEGATIVE) mg/dL Urine Occult Blood Negative (NEGATIVE) Urine Nitrite Negative (NEGATIVE) Urine Bilirubin Negative (NEGATIVE) Urine Urobilinogen Normal (NORMAL) mg/dL Ur Leukocyte Esterase Negative (NEGATIVE) Urine RBC 0-5 (0-5) Urine WBC 0-5 (0-5) Ur Epithelial Cells Few Amorphous Sediment Few Urine Bacteria Few Urine Mucus Not seen Meds: Medications Generic Name Dose Route Start Last Admin Trade Name Freq PRN Reason Stop Dose Admin Lactated Ringer's 1,000 mls @ 999 mls/hr 03/25/17 22:45 03/25/17 23:20 Ringers, Lactated IV 999 mls/hr ASDIRECTED AYESHA Administration Sodium Chloride 10 ml 03/25/17 22:35 03/25/17 23:20 Saline Flush FLUSH 10 ml ASDIRECTED PRN Administration Keep Vein Open Discontinued Medications Generic Name Dose Route Start Last Admin Trade Name Freq PRN Reason Stop Dose Admin Ondansetron HCl 4 mg 03/25/17 22:37 03/25/17 23:23 Zofran IVPUSH 03/25/17 22:38 4 mg ONETIME ONE Administration Departure - Departure Time of Disposition: 00:24 Disposition: Home, Self-Care 01 Condition: Fair Clinical Impression: Ulcerative colitis Qualifiers: Ulcerative colitis location: ulcerative pancolitis Digestive disease complication type: with rectal bleeding Qualified Code(s): K51.011 - Ulcerative (chronic) pancolitis with rectal bleeding - Discharge Information Forms: ED Department Discharge Additional Instructions: Continue to take your supplement replacements, try the Anaspaz for abdominal cramping, uses Zofran as needed for nausea and vomiting symptoms, 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 DIRECTED 03/25/17 22:45 Lactated Ringers [Ringers, Lactated] 1,000 ml IV ASDIRECTED - Assessment/Plan Last 24 Hours: My Active Orders 03/25/17 22:35 Sodium Chloride 0.9% [Saline Flush] 10 ml FLUSH ASDIRECTED PRN Peripheral IV Insertion Adult [OM.PC] Urgent 03/25/17 22:36 Peripheral IV Care [RC] . DIRECTED 03/25/17 22:45 Lactated Ringers [Ringers, Lactated] 1,000 ml IV ASDIRECTED Plan: Assessment Acuity = acute Site and laterality = generalized ill feeling complicating the patient with known history of ulcerative colitis Etiology = probably related to ulcerative colitis Manifestations = generalized abdominal pain Location of injury = Home Lab values = WBC elevated 11.6 consistent leukocytosis hemoglobin low at 9.2 consistent normochromic anemia sodium low at 137 consistent hyponatremia potassium low at 3.1 consistent with hypokalemia albumin low at 1.8 consistent hypoalbuminemia urinalysis unremarkable Plan Recommend continue magnesium replacement and potassium replacement will try Anaspaz for abdominal discomfort and Zofran as needed for nausea and vomiting symptoms keep follow-up appointments with GI and primary care Patient was in agreement with the plan all questions were answered, they were instructed to return to the emergency department or call for worsening symptoms. This note was dictated using [employer] voice recognition software please call with any questions.
[2017-03-25] MEDS ORDERED: Lactated Ringers 1,000 ML IV SCH (22:45)
== END 2017-03-26 01:13 | disposition home or self-care (01) ==
LOC: JP.ED 20:56
DX: K51.011 Ulcerative (chronic) pancolitis with rectal bleeding (principal); F41.9 Anxiety disorder, unspecified; F32.9 Major depressive disorder, single episode, unspecified; Z86.2 Personal history of diseases of the blood and blood-forming organs and certain disorders involving the immune mechanism; Z90.49 Acquired absence of other specified parts of digestive tract; Z98.51 Tubal ligation status; Z87.891 Personal history of nicotine dependence
CPT/HCPCS: 36415; 80053; 81001; 83605; 85025; 96361; 96374; 99284; J2405; J7050; J7120

== ENCOUNTER 2017-04-01 15:59 | Inpatient (IN) | payer MEDICAID ==
[2017-04-01] MEDS ORDERED: Sodium Chloride 0.9% 10 ML Syringe FLUSH PRN (16:02)
[2017-04-01] MEDS ORDERED: D5%-0.9% NaCl w/ KCl 40 meq 1,000 ML IV SCH (16:15)
[2017-04-01] MEDS: Ondansetron 4 MG/2 ML SDV IVPUSH PRN (19:30)
[2017-04-01] MEDS: ALPRAZolam 0.5 MG Tab PO PRN (19:30)
[2017-04-01] MEDS: Acetaminophen 325 MG Tab PO PRN (19:30)
[2017-04-01] MEDS ORDERED: busPIRone 10 MG Tab PO SCH (21:00)
[2017-04-01] MEDS: ALPRAZolam 0.5 MG Tab PO SCH (21:33)
[2017-04-01] MEDS: Mesalamine 800 MG Tab.CR PO SCH (21:33)
[2017-04-01] MEDS: busPIRone 10 MG, busPIRone 5 MG PO SCH ×2 (21:33)
--- NOTE | 2017-04-01 22:21 | PCM.HP ---
H&P History of Present Illness - General Date of Service: 04/01/17 Admit Problem/Dx: Admission Diagnosis/Problem Admission Diagnosis/Problem Dehydration Source of Information: Patient - History of Present Illness Initial Comments - Free Text/Narative: She leija s a history of ulcerative colitis since January of this year. She had a colonoscopy in february last month and found severe ulcerative colitis. She has been ill ever since with abdominal pain and bloody diarrhea. Has lost 18 pounds in the last month. Unable to eat. and having constant diarrhea. Colonoscopy in 2007 and found 2 polpys and the diarrhea with blood cleared. She saw a GI Phy from [place] but insurance won't pay for the meds he chose and he gave her sulfasalazine and she vomited continually. She was also given hyoscyamine with no relief from the spasms of the colon. She was admitted for treatment of dehydration, malnutrition and anemia. Onset of Symptoms: Reports: Gradual Duration of Symptoms: Reports: Week(s):, Constant Location: Reports: Abdomen, Generalized Associated Symptoms: Reports: Nausea/Vomiting, Weakness Abdominal Pain Score (Numeric/FACES): 8 - Related Data Allergies/Adverse Reactions: Allergies Allergy/AdvReac Type Severity Reaction Status Date / Time pine Allergy Severe Airway Uncoded 04/01/17 16:21 Tightness Home Medications: Home Meds ALPRAZolam [Alprazolam] 1 mg PO BID PRN 04/13/15 [History] Naproxen [Naprosyn] 500 mg PO BID 02/27/17 [History] busPIRone [Buspar] 22 mg PO BID 02/27/17 [History] Hydrocodone/Acetaminophen [Hydrocodon-Acetaminophen 5-325] 1 each PO Q8H PRN 09/05 [History] Ondansetron [Zofran ODT] 4 mg PO Q6H PRN 03/01/17 [History] Past Medical History HEENT History: Reports: Impaired Vision Respiratory History: Reports: None Gastrointestinal History: Reports: Chronic Constipation, Inflammatory Bowel Disease, Pancreatitis, Other (See Below) Other Gastrointestinal History: Ulcerative colitis RN LICENSED PRACTICAL History: Reports: , Other (See Below) Other OB/BYN History: tubal ligation Musculoskeletal History: Reports: Back Pain, Chronic Other Musculoskeletal History: degenerative disc disease Neurological History: Reports: Concussion, Vertigo Psychiatric History: Reports: Anxiety, Depression Hematologic History: Reports: Anemia Immunologic History: Reports: Other (See Below) Other Immunologic History: rheumatoid arthritis - Infectious Disease History Infectious Disease History: Reports: Chicken Pox - Past Surgical History HEENT Surgical History: Reports: Oral Surgery Cardiovascular Surgical History: Reports: None GI Surgical History: Reports: Cholecystectomy, Colonoscopy, Polypectomy Other GI Surgeries/Procedures: 17 polypes removed 10 years ago Female Surgical History: Reports: Tubal Ligation Neurological Surgical History: Reports: None Social & Family History - Tobacco Use Smoking Status *Q: Former Smoker Years of Tobacco use: 25 Packs/Tins Daily: 1 Used Tobacco, but Quit: Yes Month Tobacco Last Used: december 2016 Tobacco Use Comment: quit smoking in December Second Hand Smoke Exposure: No - Caffeine Use Caffeine Use: Reports: None - Recreational Drug Use Recreational Drug Use: No H&P Review of Systems - Review of Systems: Review Of Systems: See Below General: Reports: Fever, Chills, Weakness, Fatigue, Decreased Appetite, Weight Loss Pulmonary: Reports: Shortness of Breath Cardiovascular: Reports: Palpitations, Dyspnea on Exertion Gastrointestinal: Reports: Abdominal Pain, Anorexia, Bloody Stool, Diarrhea, Decreased Appetite, Distension, Hematochezia, Nausea, Vomiting Genitourinary: Reports: Other (minimual urine) Musculoskeletal: Reports: Muscle Pain Psychiatric: Reports: Depression, Anxiety Exam - Exam Exam: See Below - Vital Signs Vital Signs: Last Vital Signs Temp 101 F H 04/01/17 21:38 Pulse 115 H 04/01/17 21:30 Resp 16 04/01/17 21:30 BP 93/49 L 04/01/17 21:30 Pulse Ox 100 04/01/17 18:57 Weight: 149 lb 8 oz - Exam General: Severe Distress, Sedated, Lethargic, Obtunded HEENT: PERRLA, Hearing Intact, Mucosa Moist & [place], Nares Patent, Normal Nasal Septum, Posterior Pharynx Clear, Conjunctiva Clear, EOMI, EACs Clear, TMs Clear Neck: Supple, Trachea Midline, 2 Lungs: Clear to Auscultation Cardiovascular: Tachycardia Abdomen: Tenderness, Hyperactive Bowel Sounds Extremities: Edema Peripheral Pulses: 1+: Radial (L), Radial (R) Skin: Warm, Dry, Intact Neurological: Cranial Nerves Intact, Reflexes Equal Bilateral Neuro Extensive - Mental Status: Normal Cognition DTR: 1+: Patella (L), Patella (R) Psychiatric: Labile Mood - Patient Data Lab Results Last 24 hrs: Laboratory Results - last 24 hr 04/01/17 04/01/17 04/01/17 Range/Units 16:59 17:40 18:34 WBC 10.6 (4.5-11.0) K/uL RBC 3.02 L (3.30-5.50) M/uL Hgb 8.3 L (12.0-15.0) g/dL Hct 26.7 L (36.0-48.0) % MCV 88 (80-98) fL MCH 28 (27-31) pg MCHC 31 L (32-36) % Plt Count 455 H (150-400) K/uL Add Manual Diff Yes Neutrophils % (Manual) 48 (36-66) % Band Neutrophils % 12 H (5-11) % Lymphocytes % (Manual) 26 (24-44) % Monocytes % (Manual) 7 H (2-6) % Eosinophils % (Manual) 7 H (2-4) % Polychromasia Sodium 135 L (140-148) mmol/L Potassium 4.0 (3.6-5.2) mmol/L Chloride 103 (100-108) mmol/L Carbon Dioxide 27 (21-32) mmol/L Anion Gap 9.0 (5.0-14.0) mmol/L BUN 11 (7-18) mg/dL Creatinine 0.7 (0.6-1.0) mg/dL Est Cr Clr Drug Dosing 104.93 mL/min Estimated GFR (MDRD) > 60 (>60) Glucose 118 H (74-106) mg/dL Calcium 7.4 L (8.5-10.1) mg/dL Total Bilirubin 0.1 L (0.2-1.0) mg/dL AST 9 L (15-37) U/L ALT 4 L (12-78) U/L Alkaline Phosphatase 66 (46-116) U/L Total Protein 5.5 L (6.4-8.2) g/dL Albumin 1.2 L (3.4-5.0) g/dL Globulin 4.3 H (2.3-3.5) g/dL Albumin/Globulin Ratio 0.3 L (1.2-2.2) Urine Color Urine Appearance Urine pH (4.5-8.0) Ur Specific [place] (1.008-1.030) Urine Protein (NEGATIVE) mg/dL Urine Glucose (UA) (NEGATIVE) mg/dL Urine Ketones (NEGATIVE) mg/dL Urine Occult Blood (NEGATIVE) Urine Nitrite (NEGATIVE) Urine Bilirubin (NEGATIVE) Urine Urobilinogen (NORMAL) mg/dL Ur Leukocyte Esterase (NEGATIVE) Urine RBC Urine WBC Ur Epithelial Cells Amorphous Sediment Urine Bacteria Urine Mucus Urine Other Blood Type O POSITIVE Gel Antibody Screen Negative Crossmatch See Detail 04/01/17 Range/Units 19:57 WBC (4.5-11.0) K/uL RBC (3.30-5.50) M/uL Hgb (12.0-15.0) g/dL Hct (36.0-48.0) % MCV (80-98) fL MCH (27-31) pg MCHC (32-36) % Plt Count (150-400) K/uL Add Manual Diff Neutrophils % (Manual) (36-66) % Band Neutrophils % (5-11) % Lymphocytes % (Manual) (24-44) % Monocytes % (Manual) (2-6) % Eosinophils % (Manual) (2-4) % Polychromasia Sodium (140-148) mmol/L Potassium (3.6-5.2) mmol/L Chloride (100-108) mmol/L Carbon Dioxide (21-32) mmol/L Anion Gap (5.0-14.0) mmol/L BUN (7-18) mg/dL Creatinine (0.6-1.0) mg/dL Est Cr Clr Drug Dosing mL/min Estimated GFR (MDRD) (>60) Glucose (74-106) mg/dL Calcium (8.5-10.1) mg/dL Total Bilirubin (0.2-1.0) mg/dL AST (15-37) U/L ALT (12-78) U/L Alkaline Phosphatase (46-116) U/L Total Protein (6.4-8.2) g/dL Albumin (3.4-5.0) g/dL Globulin (2.3-3.5) g/dL Albumin/Globulin Ratio (1.2-2.2) Urine Color Yellow Urine Appearance Clear Urine pH 7.0 (4.5-8.0) Ur Specific [place] 1.015 (1.008-1.030) Urine Protein Negative (NEGATIVE) mg/dL Urine Glucose (UA) Normal (NEGATIVE) mg/dL Urine Ketones Negative (NEGATIVE) mg/dL Urine Occult Blood Negative (NEGATIVE) Urine Nitrite Negative (NEGATIVE) Urine Bilirubin Negative (NEGATIVE) Urine Urobilinogen Normal (NORMAL) mg/dL Ur Leukocyte Esterase Negative (NEGATIVE) Urine RBC TNP Urine WBC TNP Ur Epithelial Cells TNP Amorphous Sediment TNP Urine Bacteria TNP Urine Mucus TNP Urine Other Blood Type Gel Antibody Screen Crossmatch Result Diagrams: 04/03/17 05:40 04/03/17 05:40 *Q Meaningful Use (ADM) - VTE *Q VTE Criteria *Q: - Stroke *Q Stroke Criteria *Q: - AMI *Q AMI Criteria *Q: Problem List Initiated/Reviewed/Updated: Yes Orders Last 24hrs: Active Orders 24 hr Category Date Time Status Admission Status [Patient Status] [ADT] Routine ADT 04/01/17 16:00 Active Intake and Output [RC] ASDIRECTED Care 04/01/17 16:13 Active Peripheral IV Care [RC] . DIRECTED Care 04/01/17 16:02 Active Up ad Alejandra [RC] ASDIRECTED Care 04/01/17 16:12 Active Vital Signs [RC] Q2H Care 04/01/17 20:00 Active Vital Signs [RC] Q4H Care 04/01/17 16:12 Active Weight Daily [Height and Weight] [RC] DAILY Care 04/01/17 16:13 Active NPO Now [Nothing per Oral Now Diet] [DIET] Diet 04/01/17 Dinner Active BASIC METABOLIC PANEL,BMP [CHEM] Routine Lab 04/02/17 05:00 Ordered CBC W/O DIFF,HEMOGRAM [HEME] Routine Lab 04/02/17 05:00 Ordered CULTURE BLOOD [BC] Urgent Lab 04/01/17 18:40 Received CULTURE BLOOD [BC] Urgent Lab 04/01/17 18:50 Received PATIENT RETYPE [BBK] Routine Lab 04/01/17 18:34 Results RED BLOOD CELLS LP [BBK] Routine Lab 04/01/17 18:34 Results TYPE AND SCREEN [BBK] Routine Lab 04/01/17 18:34 Results ALPRAZolam [Xanax] Med 04/01/17 18:52 Active 0.5 mg PO Q6H PRN ALPRAZolam [Xanax] Med 04/01/17 21:00 Active 1 mg PO BID Acetaminophen [Tylenol] Med 04/01/17 18:25 Active 650 mg PO Q4H PRN Buspirone [Buspar] Med 04/01/17 21:00 Active 15 mg PO TID D5%-0.9% NaCl w/ KCl 40 meq [D5 NS with 40 mEq KCl] 1, Med 04/01/17 16:15 Active 000 ml IV ASDIRECTED Mesalamine [Asacol HD] Med 04/01/17 21:00 Active 1,600 mg PO TID Ondansetron [Zofran] Med 04/01/17 18:53 Active 4 mg IVPUSH Q4H PRN Sodium Chloride 0.9% [Saline Flush] Med 04/01/17 16:02 Active 10 ml FLUSH ASDIRECTED PRN Blood Culture x2 Reflex Set [OM.PC] Urgent Oth 04/01/17 18:29 Ordered Peripheral IV Insertion Adult [OM.PC] Routine Oth 04/01/17 16:02 Ordered Sequential Compression Device [OM.PC] Routine Oth 04/01/17 19:09 Ordered Transfuse Red Blood Cells [COMM] Routine Oth 04/01/17 18:35 Ordered Code Status [Resuscitation Status] Routine Resus Stat 04/01/17 16:02 Ordered Medication Orders Acetaminophen (Tylenol) 650 mg PO Q4H PRN PRN Reason: Pain/Fever Last Admin: 04/01/17 19:30 Dose: 650 mg Alprazolam (Xanax) 1 mg PO BID AYESHA Last Admin: 04/01/17 21:33 Dose: 1 mg Alprazolam (Xanax) 0.5 mg PO Q6H PRN PRN Reason: Anxiety Last Admin: 04/01/17 19:30 Dose: 0.5 mg Buspirone HCl 10 mg/ Buspirone (HCl 5 mg) 15 mg PO TID AYESHA Last Admin: 04/01/17 21:33 Dose: 15 mg Potassium Chloride/Dextrose/Sod Cl (D5 Ns With 40 Meq Kcl) 1,000 mls @ 250 mls/ hr IV ASDIRECTED AYESHA Mesalamine (Asacol Hd) 1,600 mg PO TID AYESHA Last Admin: 04/01/17 21:33 Dose: 1,600 mg Ondansetron HCl (Zofran) 4 mg IVPUSH Q4H PRN PRN Reason: Nausea/Vomiting Last Admin: 04/01/17 19:30 Dose: 4 mg Sodium Chloride (Saline Flush) 10 ml FLUSH ASDIRECTED PRN PRN Reason: Keep Vein Open Assessment/Plan Comment:: Assessment/Plan: #1. Ulerative Colitis: Have started on Asasol 1.6 grams tid. #2. Dehydration: Will rehydrate #3. Malnutrition: Will get a pic line tomorrow and give hyperal. #4. Anemia: I am giving 2 units of blood As Hb. was 8.3 and are hydrating her which will make it drop. #5. Hypokalemia: Yesterday here K+ was 3.1 will replace K
[2017-04-01] MEDS ORDERED: Morphine PF 150 MG/30 ML PCA Syringe IV PRN (23:06)
[2017-04-02] MEDS: Acetaminophen 325 MG Tab PO PRN ×2 (00:09→23:57)
[2017-04-02] MEDS: Morphine PF 150 MG/30 ML PCA Syringe IV PRN (00:17)
[2017-04-02] MEDS: Dextrose 5%-0.9% NaCl 1,000 ML IV SCH ×3 (02:39→23:41)
[2017-04-02] MEDS ORDERED: Morphine PF 150 MG/30 ML PCA Syringe IV PRN (07:20)
[2017-04-02] MEDS ORDERED: Naloxone 0.4 MG/ML SDV IV PRN (07:22)
[2017-04-02] MEDS: ALPRAZolam 0.5 MG Tab PO PRN (07:25)
[2017-04-02] MEDS: Ondansetron 4 MG/2 ML SDV IVPUSH PRN (07:25)
[2017-04-02] MEDS: Albumin 25% 12.5 GM in Premix Bag 1 BAG IV SCH ×4 (09:40→17:57)
[2017-04-02] MEDS: Mesalamine 800 MG Tab.CR PO SCH ×3 (09:41→21:55)
[2017-04-02] MEDS: busPIRone 10 MG, busPIRone 5 MG PO SCH ×6 (09:42→21:55)
[2017-04-02] MEDS: ALPRAZolam 0.5 MG Tab PO SCH ×2 (09:55→22:03)
[2017-04-02] MEDS ORDERED: Iopamidol 612 MG/ML 100 ML Bottle IV PRN (11:14)
[2017-04-02] MEDS ORDERED: Sodium Chloride 0.9% 100 ML IV SCH (11:15)
--- NOTE | 2017-04-02 12:45 | CT ---
Abdomen Pelvis w Cont Total DLP 581 mGycm. INDICATION: wt loss, hx colitis COMPARISON: CT 02/27/2017. FINDINGS: Since CT 02/27/2017, interval worsening of the diffuse wall thickening, mucosal hyperenhanc ement, and submucosal edema involving the entire colon. (previous CT showed involvement primarily of the descending and sigmoid colon). Mild dilatation and wall thickening of the terminal ileum consis tent with backwash ileitis. Small amount of free fluid in the pelvis. No free air. Focal fatty infil tration of the liver adjacent to the falciform ligament. Mild periportal edema. Cholecystectomy. Adr enal glands, spleen, and pancreas are unremarkable. Exam otherwise negative. IMPRESSION: Interval worsening of ulcerative colitis with new mild back-wash ileitis.
--- NOTE | 2017-04-02 15:15 | PCM.PN ---
- General Info Date of Service: 04/02/17 Functional Status: Reports: pain controlled - Review of Systems General: Reports: Weakness, Fatigue, Appetite HEENT: Reports: no symptoms Pulmonary: Reports: shortness of breath Cardiovascular: Reports: Dyspnea on Exertion, Edema Genitourinary: Reports: no symptoms Neurological: Reports: No Symptoms Psychiatric: Reports: no symptoms - Patient Data Vitals - most recent: Last Vital Signs Temp 100.3 F 04/02/17 12:41 Pulse 100 04/02/17 12:41 Resp 16 04/02/17 12:41 BP 105/67 04/02/17 12:41 Pulse Ox 98 04/02/17 13:16 Weight - most recent: 153 lb 1.6 oz I&O - last 24 hours: Intake & Output 04/02/17 04/02/17 04/02/17 06:59 14:59 22:59 Intake Total 1769 480 Balance 1769 480 Lab Results last 24 hrs: Laboratory Results - last 24 hr 04/01/17 04/01/17 04/01/17 Range/Units 16:59 17:40 18:34 WBC 10.6 (4.5-11.0) K/uL RBC 3.02 L (3.30-5.50) M/uL Hgb 8.3 L (12.0-15.0) g/dL Hct 26.7 L (36.0-48.0) % MCV 88 (80-98) fL MCH 28 (27-31) pg MCHC 31 L (32-36) % Plt Count 455 H (150-400) K/uL Neut % (Auto) (36-66) % Lymph % (Auto) (24-44) % [place] % (Auto) (2-6) % Eos % (Auto) (2-4) % Baso % (Auto) (0-1) % Add Manual Diff Yes Neutrophils % (Manual) 48 (36-66) % Band Neutrophils % 12 H (5-11) % Lymphocytes % (Manual) 26 (24-44) % Monocytes % (Manual) 7 H (2-6) % Eosinophils % (Manual) 7 H (2-4) % Polychromasia Sodium 135 L (140-148) mmol/L Potassium 4.0 (3.6-5.2) mmol/L Chloride 103 (100-108) mmol/L Carbon Dioxide 27 (21-32) mmol/L Anion Gap 9.0 (5.0-14.0) mmol/L BUN 11 (7-18) mg/dL Creatinine 0.7 (0.6-1.0) mg/dL Est Cr Clr Drug Dosing 104.93 mL/min Estimated GFR (MDRD) > 60 (>60) Glucose 118 H (74-106) mg/dL Calcium 7.4 L (8.5-10.1) mg/dL Total Bilirubin 0.1 L (0.2-1.0) mg/dL AST 9 L (15-37) U/L ALT 4 L (12-78) U/L Alkaline Phosphatase 66 (46-116) U/L Total Protein 5.5 L (6.4-8.2) g/dL Albumin 1.2 L (3.4-5.0) g/dL Globulin 4.3 H (2.3-3.5) g/dL Albumin/Globulin Ratio 0.3 L (1.2-2.2) Urine Color Urine Appearance Urine pH (4.5-8.0) Ur Specific [place] (1.008-1.030) Urine Protein (NEGATIVE) mg/dL Urine Glucose (UA) (NEGATIVE) mg/dL Urine Ketones (NEGATIVE) mg/dL Urine Occult Blood (NEGATIVE) Urine Nitrite (NEGATIVE) Urine Bilirubin (NEGATIVE) Urine Urobilinogen (NORMAL) mg/dL Ur Leukocyte Esterase (NEGATIVE) Urine RBC Urine WBC Ur Epithelial Cells Amorphous Sediment Urine Bacteria Urine Mucus Urine Other Blood Type O POSITIVE Gel Antibody Screen Negative Crossmatch See Detail 04/01/17 04/02/17 04/02/17 Range/Units 19:57 05:00 05:00 WBC 10.2 (4.5-11.0) K/uL RBC 3.71 (3.30-5.50) M/uL Hgb 10.3 L D (12.0-15.0) g/dL Hct 32.8 L (36.0-48.0) % MCV 88 (80-98) fL MCH 28 (27-31) pg MCHC 31 L (32-36) % Plt Count 387 (150-400) K/uL Neut % (Auto) (36-66) % Lymph % (Auto) (24-44) % [place] % (Auto) (2-6) % Eos % (Auto) (2-4) % Baso % (Auto) (0-1) % Add Manual Diff Neutrophils % (Manual) (36-66) % Band Neutrophils % (5-11) % Lymphocytes % (Manual) (24-44) % Monocytes % (Manual) (2-6) % Eosinophils % (Manual) (2-4) % Polychromasia Sodium 137 L (140-148) mmol/L Potassium 3.9 (3.6-5.2) mmol/L Chloride 107 (100-108) mmol/L Carbon Dioxide 27 (21-32) mmol/L Anion Gap 6.9 (5.0-14.0) mmol/L BUN 8 (7-18) mg/dL Creatinine 0.7 (0.6-1.0) mg/dL Est Cr Clr Drug Dosing 104.93 mL/min Estimated GFR (MDRD) > 60 (>60) Glucose 102 (74-106) mg/dL Calcium 7.0 L (8.5-10.1) mg/dL Total Bilirubin (0.2-1.0) mg/dL AST (15-37) U/L ALT (12-78) U/L Alkaline Phosphatase (46-116) U/L Total Protein (6.4-8.2) g/dL Albumin (3.4-5.0) g/dL Globulin (2.3-3.5) g/dL Albumin/Globulin Ratio (1.2-2.2) Urine Color Yellow Urine Appearance Clear Urine pH 7.0 (4.5-8.0) Ur Specific [place] 1.015 (1.008-1.030) Urine Protein Negative (NEGATIVE) mg/dL Urine Glucose (UA) Normal (NEGATIVE) mg/dL Urine Ketones Negative (NEGATIVE) mg/dL Urine Occult Blood Negative (NEGATIVE) Urine Nitrite Negative (NEGATIVE) Urine Bilirubin Negative (NEGATIVE) Urine Urobilinogen Normal (NORMAL) mg/dL Ur Leukocyte Esterase Negative (NEGATIVE) Urine RBC TNP Urine WBC TNP Ur Epithelial Cells TNP Amorphous Sediment TNP Urine Bacteria TNP Urine Mucus TNP Urine Other Blood Type Gel Antibody Screen Crossmatch 04/02/17 Range/Units 08:17 WBC 10.0 (4.5-11.0) K/uL RBC 3.58 (3.30-5.50) M/uL Hgb 10.2 L (12.0-15.0) g/dL Hct 31.8 L (36.0-48.0) % MCV 89 (80-98) fL MCH 29 (27-31) pg MCHC 32 (32-36) % Plt Count 387 (150-400) K/uL Neut % (Auto) 54 (36-66) % Lymph % (Auto) 26 (24-44) % [place] % (Auto) 12 H (2-6) % Eos % (Auto) 7 H (2-4) % Baso % (Auto) 1 (0-1) % Add Manual Diff Neutrophils % (Manual) (36-66) % Band Neutrophils % (5-11) % Lymphocytes % (Manual) (24-44) % Monocytes % (Manual) (2-6) % Eosinophils % (Manual) (2-4) % Polychromasia Sodium (140-148) mmol/L Potassium (3.6-5.2) mmol/L Chloride (100-108) mmol/L Carbon Dioxide (21-32) mmol/L Anion Gap (5.0-14.0) mmol/L BUN (7-18) mg/dL Creatinine (0.6-1.0) mg/dL Est Cr Clr Drug Dosing mL/min Estimated GFR (MDRD) (>60) Glucose (74-106) mg/dL Calcium (8.5-10.1) mg/dL Total Bilirubin (0.2-1.0) mg/dL AST (15-37) U/L ALT (12-78) U/L Alkaline Phosphatase (46-116) U/L Total Protein (6.4-8.2) g/dL Albumin (3.4-5.0) g/dL Globulin (2.3-3.5) g/dL Albumin/Globulin Ratio (1.2-2.2) Urine Color Urine Appearance Urine pH (4.5-8.0) Ur Specific [place] (1.008-1.030) Urine Protein (NEGATIVE) mg/dL Urine Glucose (UA) (NEGATIVE) mg/dL Urine Ketones (NEGATIVE) mg/dL Urine Occult Blood (NEGATIVE) Urine Nitrite (NEGATIVE) Urine Bilirubin (NEGATIVE) Urine Urobilinogen (NORMAL) mg/dL Ur Leukocyte Esterase (NEGATIVE) Urine RBC Urine WBC Ur Epithelial Cells Amorphous Sediment Urine Bacteria Urine Mucus Urine Other Blood Type Gel Antibody Screen Crossmatch Med Orders - Current: Current Medications Acetaminophen (Tylenol) 650 mg PO Q4H PRN PRN Reason: Pain/Fever Last Admin: 04/02/17 00:09 Dose: 650 mg Alprazolam (Xanax) 1 mg PO BID AYESHA Last Admin: 04/02/17 09:55 Dose: 1 mg Alprazolam (Xanax) 0.5 mg PO Q6H PRN PRN Reason: Anxiety Last Admin: 04/02/17 07:25 Dose: 0.5 mg Buspirone HCl 10 mg/ Buspirone (HCl 5 mg) 15 mg PO TID AYESHA Last Admin: 04/02/17 13:45 Dose: 15 mg Dextrose/Sodium Chloride (Dextrose 5%-Normal Saline) 1,000 mls @ 150 mls/hr IV ASDIRECTED AYESHA Last Admin: 04/02/17 02:39 Dose: 150 mls/hr Albumin Human 12.5 gm/ Premix 50 mls @ 25 mls/hr IV Q2H [facility] Stop: 04/02/17 19:59 Albumin Human 12.5 gm/ Premix 50 mls @ 25 mls/hr IV Q24H AYESHA Albumin Human 12.5 gm/ Premix 50 mls @ 25 mls/hr IV Q24H AYESHA Albumin Human 12.5 gm/ Premix 50 mls @ 25 mls/hr IV Q24H AYESHA Albumin Human 12.5 gm/ Premix 50 mls @ 25 mls/hr IV Q24H [facility] Mesalamine (Asacol Hd) 1,600 mg PO TID [facility] Last Admin: 04/02/17 13:45 Dose: 1,600 mg Morphine Sulfate (Morphine Environmental Health Safety Engineer 150 Mg In 30 Ml) 0 mg IV ASDIRECTED PRN; Protocol PRN Reason: Pain Last Admin: 04/02/17 00:17 Dose: 150 mg Naloxone HCl (Narcan) 0.1 mg IV ASDIRECTED PRN PRN Reason: RESP DISTRESS Ondansetron HCl (Zofran) 4 mg IVPUSH Q4H PRN PRN Reason: Nausea/Vomiting Last Admin: 04/02/17 07:25 Dose: 4 mg Sodium Chloride (Saline Flush) 10 ml FLUSH ASDIRECTED PRN PRN Reason: Keep Vein Open Discontinued Medications Potassium Chloride/Dextrose/Sod Cl (D5 Ns With 40 Meq Kcl) 1,000 mls @ 250 mls/ hr IV ASDIRECTED [facility] Last Admin: 04/01/17 22:51 Dose: 250 mls/hr Albumin Human 12.5 gm/ Premix 50 mls @ 25 mls/hr IV Q2H [facility] Stop: 04/02/17 12:59 Last Admin: 04/02/17 13:30 Dose: 25 mls/hr Sodium Chloride (Normal Saline) 100 mls @ 3.5 mls/sec IV ASDIRECTED AYESHA Stop: 04/02/17 12:00 Last Admin: 04/02/17 11:52 Dose: 3.5 mls/sec Iopamidol (Isovue-300 (61%)) 100 ml IV . DIRECTED PRN PRN Reason: RADIOLOGY EXAM Stop: 04/02/17 12:00 Last Admin: 04/02/17 11:51 Dose: 100 ml Morphine Sulfate (Morphine Environmental Health Safety Engineer 150 Mg In 30 Ml) 1 mg IV ASDIRECTED PRN; Protocol PRN Reason: Pain - Exam General: alert, oriented, cooperative, moderate distress HEENT: Pupils equal, Pupils reactive, EOMI, Mucous membr. moist/pink Neck: supple Lungs: Clear to auscultation, Normal respiratory effort Cardiovascular: Regular Rate, Regular Rhythm Abdomen: tenderness Extremities: edema Peripheral Pulses: 1+: Radial (L), Radial (R) Skin: warm - Problem List Review Problem List Initiated/Reviewed/Updated: Yes - My Orders Last 24 Hours: My Active Orders 04/01/17 16:00 Admission Status [Patient Status] [ADT] Routine 04/01/17 16:02 Peripheral IV Care [RC] Q12H Sodium Chloride 0.9% [Saline Flush] 10 ml FLUSH ASDIRECTED PRN Peripheral IV Insertion Adult [OM.PC] Routine Code Status [Resuscitation Status] Routine 04/01/17 16:12 Up ad Alejandra [RC] ASDIRECTED Vital Signs [RC] Q4H 04/01/17 16:13 Intake and Output [RC] ASDIRECTED 04/01/17 18:25 Acetaminophen [Tylenol] 650 mg PO Q4H PRN 04/01/17 18:29 Blood Culture x2 Reflex Set [OM.PC] Urgent 04/01/17 18:35 Transfuse Red Blood Cells [COMM] Routine 04/01/17 18:40 CULTURE BLOOD [BC] Urgent 04/01/17 18:50 CULTURE BLOOD [BC] Urgent 04/01/17 18:52 ALPRAZolam [Xanax] 0.5 mg PO Q6H PRN 04/01/17 18:53 Ondansetron [Zofran] 4 mg IVPUSH Q4H PRN 04/01/17 19:09 Sequential Compression Device [OM.PC] Routine 04/01/17 21:00 ALPRAZolam [Xanax] 1 mg PO BID Buspirone [Buspar] 15 mg PO TID Mesalamine [Asacol HD] 1,600 mg PO TID 04/01/17 22:40 Total Parental Nutrition [COMM] Routine 04/01/17 22:43 Central Line Assessment [RC] QSHIFT 04/01/17 22:45 Dextrose 5%-0.9% NaCl [Dextrose 5%-Normal Saline] 1,000 ml IV ASDIRECTED 04/01/17 23:00 Morphine PF [Morphine BULK RECEIVER 150 MG in 30 ML] 0 mg IV ASDIRECTED PRN 04/01/17 23:05 CULTURE STOOL + SHIGATOX [RM] Routine 04/02/17 07:00 Consult to Dietary [Consult to Operations Examiner] [CONS] Routine 04/02/17 07:22 Naloxone [Narcan] 0.1 mg IV ASDIRECTED PRN 04/02/17 09:00 Consult to PICC Team [CONS] Routine Central Venous Line Insertion [OM.PC] Routine 04/02/17 10:27 Consult to Physician [CONS] Routine 04/02/17 10:28 Notify Provider Consults [RC] ASDIRECTED 04/02/17 16:00 Albumin 25% [Flexbumin 25%] 12.5 gm Premix Bag 1 bag IV Q2H - Plan Plan:: Assessment/Plan: #1. Ulerative Colitis: Consulted Dr. Umaña who will do a colonoscopy on Wednesday and possibly a colon resection on Wednesday. #2. Dehydration: Will continue with rehydration #3. Malnutrition: Will get a central line will be placed. #4. Anemia: 2 units of blood were given and now Hb is 10.2. #5. Hypokalemia: today the K+ was 3.9.
[2017-04-03] MEDS: Albumin 25% 12.5 GM in Premix Bag 1 BAG IV SCH ×4 (05:32→12:51)
[2017-04-03] MEDS: Dextrose 5%-0.9% NaCl 1,000 ML IV SCH ×2 (06:44→13:43)
[2017-04-03] MEDS: ALPRAZolam 0.5 MG Tab PO SCH ×2 (08:36→21:18)
[2017-04-03] MEDS: Mesalamine 800 MG Tab.CR PO SCH ×3 (08:36→21:18)
[2017-04-03] MEDS: busPIRone 10 MG, busPIRone 5 MG PO SCH ×6 (08:37→21:18)
[2017-04-03] MEDS: Potassium Chloride 20 MEQ, Lidocaine 1% 2 ML in Sodium Chloride 0.9% 100 ML IV SCH ×3 (08:57→14:13)
--- NOTE | 2017-04-03 15:40 | PCM.PN ---
- General Info Date of Service: 04/03/17 Functional Status: Reports: pain controlled - Review of Systems General: Reports: Weakness, Fatigue, Other ( appetite improved) Pulmonary: Reports: other (breatjomg wotj sjprtnmess of breath has improved.) Cardiovascular: Reports: Palpitations Gastrointestinal: Reports: Abdominal pain, Diarrhea, Other (Abd cramping.) Genitourinary: Reports: no symptoms Musculoskeletal: Reports: no symptoms Skin: Reports: no symptoms Neurological: Reports: No Symptoms Psychiatric: Reports: no symptoms - Patient Data Vitals - most recent: Last Vital Signs Temp 100.7 F H 04/03/17 14:28 Pulse 112 H 04/03/17 14:28 Resp 17 04/03/17 14:28 BP 115/60 04/03/17 14:28 Pulse Ox 99 04/03/17 14:28 Weight - most recent: 153 lb 1.6 oz I&O - last 24 hours: Intake & Output 04/03/17 04/03/17 04/03/17 06:59 14:59 22:59 Intake Total 1510 1566 Output Total 500 Balance 1010 1566 Lab Results last 24 hrs: Laboratory Results - last 24 hr 04/01/17 04/03/17 04/03/17 Range/Units 18:34 05:40 05:40 WBC 7.4 (4.5-11.0) K/uL RBC 3.27 L (3.30-5.50) M/uL Hgb 9.1 L (12.0-15.0) g/dL Hct 29.0 L (36.0-48.0) % MCV 89 (80-98) fL MCH 28 (27-31) pg MCHC 31 L (32-36) % Plt Count 325 (150-400) K/uL Neut % (Auto) 46 (36-66) % Lymph % (Auto) 31 (24-44) % [place] % (Auto) 13 H (2-6) % Eos % (Auto) 9 H (2-4) % Baso % (Auto) 0 (0-1) % Sodium 140 (140-148) mmol/L Potassium 3.0 L (3.6-5.2) mmol/L Chloride 108 (100-108) mmol/L Carbon Dioxide 25 (21-32) mmol/L Anion Gap 10.0 (5.0-14.0) mmol/L BUN 4 L (7-18) mg/dL Creatinine 0.5 L (0.6-1.0) mg/dL Est Cr Clr Drug Dosing 146.51 mL/min Estimated GFR (MDRD) > 60 (>60) Glucose 124 H (74-106) mg/dL Calcium 7.3 L (8.5-10.1) mg/dL Blood Type O POSITIVE Gel Antibody Screen Negative Crossmatch See Detail Ron Results last 24 hrs: Microbiology 04/01/17 23:05 Stool Culture - Preliminary Stool / Feces NORMAL ENTERIC FREEMAN 1 DAY - Final NEGATIVE FOR SHIGA TOXIN 1 - Final NEGATIVE FOR SHIGA TOXIN 2 04/01/17 18:50 Aerobic Blood Culture - Preliminary Blood - Venous - Lab Draw NO GROWTH AFTER 1 DAY Anaerobic Blood Culture - Preliminary NO GROWTH AFTER 1 DAY 04/01/17 18:40 Aerobic Blood Culture - Preliminary Blood - Venous NO GROWTH AFTER 1 DAY Anaerobic Blood Culture - Preliminary NO GROWTH AFTER 1 DAY Med Orders - Current: Current Medications Acetaminophen (Tylenol) 650 mg PO Q4H PRN PRN Reason: Pain/Fever Last Admin: 04/02/17 23:57 Dose: 650 mg Alprazolam (Xanax) 1 mg PO BID [facility] Last Admin: 04/03/17 08:36 Dose: 1 mg Alprazolam (Xanax) 0.5 mg PO Q6H PRN PRN Reason: Anxiety Last Admin: 04/02/17 07:25 Dose: 0.5 mg Buspirone HCl 10 mg/ Buspirone (HCl 5 mg) 15 mg PO TID [facility] Last Admin: 04/03/17 08:37 Dose: 15 mg Dextrose/Sodium Chloride (Dextrose 5%-Normal Saline) 1,000 mls @ 150 mls/hr IV ASDIRECTED [facility] Last Admin: 04/03/17 13:43 Dose: 150 mls/hr Albumin Human 12.5 gm/ Premix 50 mls @ 25 mls/hr IV Q24H [facility] Last Admin: 04/03/17 05:32 Dose: 25 mls/hr Albumin Human 12.5 gm/ Premix 50 mls @ 25 mls/hr IV Q24H [facility] Last Admin: 04/03/17 08:36 Dose: 25 mls/hr Albumin Human 12.5 gm/ Premix 50 mls @ 25 mls/hr IV Q24H [facility] Last Admin: 04/03/17 10:16 Dose: 25 mls/hr Albumin Human 12.5 gm/ Premix 50 mls @ 25 mls/hr IV Q24H [facility] Last Admin: 04/03/17 12:51 Dose: 25 mls/hr Mesalamine (Asacol Hd) 1,600 mg PO TID [facility] Last Admin: 04/03/17 08:36 Dose: 1,600 mg Morphine Sulfate (Morphine B2B Sales Consultant 150 Mg In 30 Ml) 0 mg IV ASDIRECTED PRN; Protocol PRN Reason: Pain Last Admin: 04/02/17 00:17 Dose: 150 mg Naloxone HCl (Narcan) 0.1 mg IV ASDIRECTED PRN PRN Reason: RESP DISTRESS Ondansetron HCl (Zofran) 4 mg IVPUSH Q4H PRN PRN Reason: Nausea/Vomiting Last Admin: 04/02/17 07:25 Dose: 4 mg Pneumococcal Polyvalent Vaccine (Pneumovax 23) 0.5 ml IM .ONCE ONE Stop: 04/07/17 14:01 Sodium Chloride (Saline Flush) 10 ml FLUSH ASDIRECTED PRN PRN Reason: Keep Vein Open Discontinued Medications Potassium Chloride/Dextrose/Sod Cl (D5 Ns With 40 Meq Kcl) 1,000 mls @ 250 mls/ hr IV ASDIRECTED [facility] Last Admin: 04/01/17 22:51 Dose: 250 mls/hr Albumin Human 12.5 gm/ Premix 50 mls @ 25 mls/hr IV Q2H [facility] Stop: 04/02/17 12:59 Last Admin: 04/02/17 13:30 Dose: 25 mls/hr Sodium Chloride (Normal Saline) 100 mls @ 3.5 mls/sec IV ASDIRECTED [facility] Stop: 04/02/17 12:00 Last Admin: 04/02/17 11:52 Dose: 3.5 mls/sec Albumin Human 12.5 gm/ Premix 50 mls @ 25 mls/hr IV Q2H [facility] Stop: 04/02/17 19:59 Last Admin: 04/02/17 17:57 Dose: 25 mls/hr Potassium Chloride 20 meq/Lidocaine HCl 2 ml/ Sodium Chloride 112 mls @ 56 mls/ hr IV Q2H [facility] Stop: 04/03/17 14:59 Last Admin: 04/03/17 14:13 Dose: 56 mls/hr Iopamidol (Isovue-300 (61%)) 100 ml IV . DIRECTED PRN PRN Reason: RADIOLOGY EXAM Stop: 04/02/17 12:00 Last Admin: 04/02/17 11:51 Dose: 100 ml Morphine Sulfate (Morphine B2B Sales Consultant 150 Mg In 30 Ml) 1 mg IV ASDIRECTED PRN; Protocol PRN Reason: Pain - Exam General: alert, oriented HEENT: Pupils equal, Pupils reactive, EOMI, Mucous membr. moist/pink Neck: supple Lungs: Clear to auscultation, Normal respiratory effort Cardiovascular: Regular Rate, Regular Rhythm Abdomen: tenderness, distension Back Exam: Normal Inspection Peripheral Pulses: 1+: Radial (L), Radial (R) Skin: warm, dry, intact - Problem List Review Problem List Initiated/Reviewed/Updated: Yes - Plan Plan:: Assessment/Plan: #1. Ulerative Colitis: Consulted Dr. Umaña who will do a colonoscopy tomorrow and colectomy on Wednesday. #2. Dehydration: Will continue with rehydration #3. Malnutrition: Will get a central line will be placed. #4. Anemia: Down to 9.1 will give 1 unit of pac cells. #5. Hypokalemia: today the K+ was 3.1 K is being given.
[2017-04-03] MEDS: Ondansetron 4 MG/2 ML SDV IVPUSH PRN (15:50)
[2017-04-03] MEDS: Acetaminophen 325 MG Tab PO PRN (17:19)
[2017-04-04] MEDS: Albumin 25% 12.5 GM in Premix Bag 1 BAG IV SCH ×4 (05:18→17:07)
[2017-04-04] MEDS: Acetaminophen 325 MG Tab PO PRN ×2 (05:33→19:11)
[2017-04-04] MEDS: Ondansetron 4 MG/2 ML SDV IVPUSH PRN ×2 (07:22→19:12)
[2017-04-04] MEDS ORDERED: Propofol 200 MG/20 ML SDV ONE (07:44)
[2017-04-04] MEDS ORDERED: Midazolam 1 MG/ML 2 ML SDV ONE (07:44)
[2017-04-04] MEDS ORDERED: fentaNYL 100 MCG/2 ML SDV ONE (07:44)
[2017-04-04] MEDS: Dextrose 5%-0.9% NaCl 1,000 ML IV SCH ×2 (07:50→13:40)
[2017-04-04] MEDS: busPIRone 10 MG, busPIRone 5 MG PO SCH ×6 (10:35→22:29)
[2017-04-04] MEDS: Mesalamine 800 MG Tab.CR PO SCH ×3 (10:36→22:29)
[2017-04-04] MEDS: ALPRAZolam 0.5 MG Tab PO SCH ×2 (11:01→22:30)
--- NOTE | 2017-04-04 11:47 | PCM.PN ---
- General Info Date of Service: 04/04/17 Functional Status: Reports: pain controlled - Review of Systems General: Reports: Weakness HEENT: Reports: no symptoms Pulmonary: Reports: shortness of breath Cardiovascular: Reports: No Symptoms Gastrointestinal: Reports: Abdominal pain, Diarrhea, Nausea Genitourinary: Reports: no symptoms Musculoskeletal: Reports: no symptoms Skin: Reports: no symptoms Neurological: Reports: No Symptoms Psychiatric: Reports: no symptoms - Patient Data Vitals - most recent: Last Vital Signs Temp 99.1 F 04/04/17 11:00 Pulse 101 H 04/04/17 11:00 Resp 18 04/04/17 11:00 BP 118/68 04/04/17 11:00 Pulse Ox 100 04/04/17 11:00 Weight - most recent: 149 lb 8 oz I&O - last 24 hours: Intake & Output 04/03/17 04/04/17 04/04/17 22:59 06:59 14:59 Intake Total 2942 450 523 Output Total 2700 1800 1250 Balance 242 -4980 -727 Lab Results last 24 hrs: Laboratory Results - last 24 hr 04/01/17 04/04/17 04/04/17 Range/Units 18:34 04:43 04:43 WBC 8.6 (4.5-11.0) K/uL RBC 3.82 (3.30-5.50) M/uL Hgb 10.7 L (12.0-15.0) g/dL Hct 33.8 L (36.0-48.0) % MCV 89 (80-98) fL MCH 28 (27-31) pg MCHC 32 (32-36) % Plt Count 369 (150-400) K/uL APTT 29.4 (27.0-36.0) sec Sodium (140-148) mmol/L Potassium (3.6-5.2) mmol/L Chloride (100-108) mmol/L Carbon Dioxide (21-32) mmol/L Anion Gap (5.0-14.0) mmol/L BUN (7-18) mg/dL Creatinine (0.6-1.0) mg/dL Est Cr Clr Drug Dosing mL/min Estimated GFR (MDRD) (>60) Glucose (74-106) mg/dL Calcium (8.5-10.1) mg/dL Phosphorus (2.5-4.9) mg/dL Magnesium (1.8-2.4) mg/dL Total Bilirubin (0.2-1.0) mg/dL AST (15-37) U/L ALT (12-78) U/L Alkaline Phosphatase (46-116) U/L Total Protein (6.4-8.2) g/dL Albumin (3.4-5.0) g/dL Globulin (2.3-3.5) g/dL Albumin/Globulin Ratio (1.2-2.2) Blood Type O POSITIVE Gel Antibody Screen Negative Crossmatch See Detail 04/04/17 Range/Units 04:43 WBC (4.5-11.0) K/uL RBC (3.30-5.50) M/uL Hgb (12.0-15.0) g/dL Hct (36.0-48.0) % MCV (80-98) fL MCH (27-31) pg MCHC (32-36) % Plt Count (150-400) K/uL APTT (27.0-36.0) sec Sodium 141 (140-148) mmol/L Potassium 3.9 (3.6-5.2) mmol/L Chloride 107 (100-108) mmol/L Carbon Dioxide 27 (21-32) mmol/L Anion Gap 7.4 (5.0-14.0) mmol/L BUN 5 L (7-18) mg/dL Creatinine 0.6 (0.6-1.0) mg/dL Est Cr Clr Drug Dosing 122.09 mL/min Estimated GFR (MDRD) > 60 (>60) Glucose 102 (74-106) mg/dL Calcium 7.7 L (8.5-10.1) mg/dL Phosphorus 3.1 (2.5-4.9) mg/dL Magnesium 1.5 L (1.8-2.4) mg/dL Total Bilirubin 0.3 D (0.2-1.0) mg/dL AST 24 D (15-37) U/L ALT 34 D (12-78) U/L Alkaline Phosphatase 150 H D (46-116) U/L Total Protein 5.2 L (6.4-8.2) g/dL Albumin 2.0 L (3.4-5.0) g/dL Globulin 3.2 (2.3-3.5) g/dL Albumin/Globulin Ratio 0.6 L (1.2-2.2) Blood Type Gel Antibody Screen Crossmatch Ron Results last 24 hrs: Microbiology 04/01/17 23:05 Stool Culture - Preliminary Stool / Feces NORMAL ENTERIC FREEMAN 2 DAYS - Final NEGATIVE FOR SHIGA TOXIN 1 - Final NEGATIVE FOR SHIGA TOXIN 2 04/01/17 18:50 Aerobic Blood Culture - Preliminary Blood - Venous - Lab Draw NO GROWTH AFTER 2 DAYS Anaerobic Blood Culture - Preliminary NO GROWTH AFTER 2 DAYS 04/01/17 18:40 Aerobic Blood Culture - Preliminary Blood - Venous NO GROWTH AFTER 2 DAYS Anaerobic Blood Culture - Preliminary NO GROWTH AFTER 2 DAYS 04/03/17 16:13 Clostridium difficile (PCR) - Final Stool / Feces - Stool, Liquid NEGATIVE CDIFF TOXIN Med Orders - Current: Current Medications Acetaminophen (Tylenol) 650 mg PO Q4H PRN PRN Reason: Pain/Fever Last Admin: 04/04/17 05:33 Dose: 650 mg Alprazolam (Xanax) 1 mg PO BID [facility] Last Admin: 04/04/17 11:01 Dose: 1 mg Alprazolam (Xanax) 0.5 mg PO Q6H PRN PRN Reason: Anxiety Last Admin: 04/02/17 07:25 Dose: 0.5 mg Buspirone HCl 10 mg/ Buspirone (HCl 5 mg) 15 mg PO TID [facility] Last Admin: 04/04/17 10:35 Dose: 15 mg Dextrose/Sodium Chloride (Dextrose 5%-Normal Saline) 1,000 mls @ 150 mls/hr IV ASDIRECTED [facility] Last Admin: 04/04/17 07:50 Dose: 150 mls/hr Albumin Human 12.5 gm/ Premix 50 mls @ 25 mls/hr IV Q24H [facility] Last Admin: 04/04/17 05:18 Dose: 25 mls/hr Albumin Human 12.5 gm/ Premix 50 mls @ 25 mls/hr IV Q24H [facility] Last Admin: 04/04/17 10:04 Dose: 25 mls/hr Albumin Human 12.5 gm/ Premix 50 mls @ 25 mls/hr IV Q24H [facility] Last Admin: 04/03/17 10:16 Dose: 25 mls/hr Albumin Human 12.5 gm/ Premix 50 mls @ 25 mls/hr IV Q24H [facility] Last Admin: 04/03/17 12:51 Dose: 25 mls/hr Cefoxitin Sodium 2 gm/ Sodium (Chloride) 50 mls @ 100 mls/hr IV ONETIME ONE Stop: 04/05/17 11:59 Multivitamins/Minerals 10 ml/Chromium/Copper/Manganese/Seleni/Zn 1 ml/ Amino Ac/ Electrol/Dextrose/Calcium 1,011 mls @ 97 mls/hr IV .BY DURATION [facility] Amino Ac/Electrol/Dextrose/Calcium (Clinimix E 02/01) 1,000 mls @ 97 mls/hr IV .BY DURATION [facility] Fat Emulsion Intravenous (Intralipid 20%) 100 mls @ 8.3 mls/hr IV ONETIME ONE Stop: 04/05/17 04:02 Mesalamine (Asacol Hd) 1,600 mg PO TID [facility] Last Admin: 04/04/17 10:36 Dose: 1,600 mg Morphine Sulfate (Morphine Depilatory Painter 150 Mg In 30 Ml) 0 mg IV ASDIRECTED PRN; Protocol PRN Reason: Pain Last Admin: 04/02/17 00:17 Dose: 150 mg Naloxone HCl (Narcan) 0.1 mg IV ASDIRECTED PRN PRN Reason: RESP DISTRESS Ondansetron HCl (Zofran) 4 mg IVPUSH Q4H PRN PRN Reason: Nausea/Vomiting Last Admin: 04/04/17 07:22 Dose: 4 mg Sodium Chloride (Saline Flush) 10 ml FLUSH ASDIRECTED PRN PRN Reason: Keep Vein Open Discontinued Medications Fentanyl (Sublimaze) Confirm Administered Dose 100 mcg .ROUTE .STK-MED ONE Stop: 04/04/17 07:45 Heparin Sodium (Porcine) (Heparin Lock Flush 100 Units/Ml) Confirm Administered Dose 500 units .ROUTE .STK-MED ONE Stop: 04/04/17 07:37 Last Admin: 04/04/17 08:17 Dose: 500 units Potassium Chloride/Dextrose/Sod Cl (D5 Ns With 40 Meq Kcl) 1,000 mls @ 250 mls/ hr IV ASDIRECTED [facility] Last Admin: 04/01/17 22:51 Dose: 250 mls/hr Albumin Human 12.5 gm/ Premix 50 mls @ 25 mls/hr IV Q2H [facility] Stop: 04/02/17 12:59 Last Admin: 04/02/17 13:30 Dose: 25 mls/hr Sodium Chloride (Normal Saline) 100 mls @ 3.5 mls/sec IV ASDIRECTED AYESHA Stop: 04/02/17 12:00 Last Admin: 04/02/17 11:52 Dose: 3.5 mls/sec Albumin Human 12.5 gm/ Premix 50 mls @ 25 mls/hr IV Q2H AYESHA Stop: 04/02/17 19:59 Last Admin: 04/02/17 17:57 Dose: 25 mls/hr Potassium Chloride 20 meq/Lidocaine HCl 2 ml/ Sodium Chloride 112 mls @ 56 mls/ hr IV Q2H AYESHA Stop: 04/03/17 14:59 Last Admin: 04/03/17 14:13 Dose: 56 mls/hr Iopamidol (Isovue-300 (61%)) 100 ml IV . DIRECTED PRN PRN Reason: RADIOLOGY EXAM Stop: 04/02/17 12:00 Last Admin: 04/02/17 11:51 Dose: 100 ml Midazolam HCl (Versed 1 Mg/Ml) Confirm Administered Dose 2 mg .ROUTE .STK-MED ONE Stop: 04/04/17 07:45 Morphine Sulfate (Morphine Depilatory Painter 150 Mg In 30 Ml) 1 mg IV ASDIRECTED PRN; Protocol PRN Reason: Pain Pneumococcal Polyvalent Vaccine (Pneumovax 23) 0.5 ml IM .ONCE ONE Stop: 04/07/17 14:01 Propofol (Diprivan 20 Ml) Confirm Administered Dose 200 mg .ROUTE .STK-MED ONE Stop: 04/04/17 07:45 - Exam General: alert, oriented, cooperative HEENT: Pupils equal Neck: supple Lungs: Clear to auscultation Cardiovascular: Regular Rate, Regular Rhythm Abdomen: bowel sounds present, soft, tenderness Peripheral Pulses: 1+: Brachial (L), Brachial (R) Skin: warm, dry, intact Neurological: no new focal deficit Psy/Mental Status: alert, normal affect, normal mood - Problem List Review Problem List Initiated/Reviewed/Updated: Yes - Plan Plan:: Assessment/Plan: #1. 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 #2. Dehydration: Continue with IV fluid #3. Malnutrition: Central line placed.. #4. Anemia: One unit given yesterday and Be 10.7 today which is OK for surgery tomorrow. #5. Hypokalemia: K 3.9 todayl
[2017-04-04] MEDS ORDERED: Magnesium Sulfate/Water 2 GM in Premix Bag 1 BAG IV ONE (13:00)
[2017-04-04] MEDS: 1: AA 5%/Calcium/D15W/Lytes 1,000 ML with MVI, Adult with Vitamin K 10 ML, Chromium/Copp IV SCH ×3 (13:36)
[2017-04-04] MEDS ORDERED: Fat Emulsion 100 ML IV ONE (16:00)
[2017-04-04] MEDS: ALPRAZolam 0.5 MG Tab PO PRN (19:11)
[2017-04-05] MEDS: 1: AA 5%/Calcium/D15W/Lytes 1,000 ML with MVI, Adult with Vitamin K 10 ML, Chromium/Copp IV SCH ×9 (00:34→23:48)
[2017-04-05] MEDS: Dextrose 5%-0.9% NaCl 1,000 ML IV SCH ×2 (00:34→07:39)
[2017-04-05] MEDS: Acetaminophen 325 MG Tab PO PRN (02:36)
[2017-04-05] MEDS: ALPRAZolam 0.5 MG Tab PO PRN (02:47)
[2017-04-05] MEDS: Albumin 25% 12.5 GM in Premix Bag 1 BAG IV SCH ×4 (05:18→17:12)
[2017-04-05] MEDS ORDERED: Potassium Phosphates 45 MMOLE in Sodium Chloride 0.9% 500 ML IV SCH (06:00)
[2017-04-05] MEDS ORDERED: Potassium Phosphates 15 MMOLE in Sodium Chloride 0.9% 250 ML IV SCH (06:30)
[2017-04-05] MEDS: Morphine PF 150 MG/30 ML PCA Syringe IV PRN (07:29)
[2017-04-05] MEDS: Ondansetron 4 MG/2 ML SDV IVPUSH PRN (07:39)
--- NOTE | 2017-04-05 07:46 | PN ---
DATE OF SERVICE: 04/03/2017 SUBJECTIVE: Bre will be having a colonoscopy tomorrow. She had a temperature max of 99.8, it is currently 97.8. Labs this morning revealed hemoglobin of 9.1 and potassium of 3. Blood sugar was 124. She reports her pain is controlled. REVIEW OF SYSTEMS: Remainder of review of systems is negative for any pertinent positives and negatives. OBJECTIVE: GENERAL: Bre Lorenzana is a 41-year-old female. She is alert and orientated, talkative. VITAL SIGNS: TPR 97.8, 105, 16, blood pressure is 107/69. HEENT: Negative. NECK: Supple. HEART: Regular rate and rhythm. LUNGS: Clear. ABDOMEN: Reveals generalized tenderness. EXTREMITIES: Reveal no peripheral edema trace bilaterally, right is greater than the left. She states this is from being on prednisone prior. ASSESSMENT: 1. Acute ulcerative colitis with colonoscopy scheduled for 04/04/2017. 2. Dehydration. 3. Malnutrition. 4. Anemia. 5. Hypokalemia. PLAN: 1. A prescription for KCl 60 mEq with lidocaine to be given IV in 3 divided doses. 2. Check CBC, CMP, and mag phos in a.m. 3. Manny stockings use as directed. 4. Incentive spirometer use as directed. 5. We will evaluate p.r.n. or in a.m. Michelle Spicer PA-C /[id number]
[2017-04-05] MEDS: Mesalamine 800 MG Tab.CR PO SCH ×3 (08:27→22:18)
[2017-04-05] MEDS: ALPRAZolam 0.5 MG Tab PO SCH (08:27)
[2017-04-05] MEDS: busPIRone 10 MG, busPIRone 5 MG PO SCH ×6 (08:27→22:19)
[2017-04-05] MEDS: Potassium Phosphates 15 MMOLE in Sodium Chloride 0.9% 250 ML IV SCH ×2 (08:40→10:54)
[2017-04-05] MEDS ORDERED: Naloxone 0.4 MG/ML SDV IVPUSH PRN (09:03)
--- NOTE | 2017-04-05 09:41 | CONS ---
DATE OF SERVICE: 04/02/2017 REFERRING PHYSICIAN: CONSULTING PHYSICIAN: Colby Umaña MD HISTORY: This is a 41-year-old with roughly 8 or 9-year history of ongoing ulcerative colitis, who presents with ongoing bleeding. She has been intolerant of steroids as well as mesalamine and presently is having some more or less continuous ongoing bleeding. Her admitting hemoglobin was 8.3, and she has received transfusions during the hospitalization with getting hemoglobin up to 10.3. She continues to have some ongoing bleeding. Recently, Dr. Bradley did a colonoscopy, which confirmed the picture of ulcerative colitis. Biopsies showed crypt abscesses without granulomas, and the overall pattern became immediately that the rectum had extended proximally in a continuous manner, i.e., this appears to be consistent with an ulcerative colitis endoscopically. A CT scan obtained earlier today shows pancolitis, which is somewhat worsening in overall appearance in extent than the previous CT scan. There was some backwash ileitis, but otherwise the remainder of the small bowel appears to be normal. Again, the overall picture appeared to be consistent with an ulcerative colitis. PAST MEDICAL HISTORY: Includes history of pancreatitis. She has had and is status post tubal ligation, some degenerative disk disease, depression, and history of rheumatoid arthritis. PAST SURGICAL HISTORY: Includes cholecystectomy, colonoscopy with polypectomy and biopsies, and the tubal ligation. SOCIAL HISTORY: The patient is presently not smoking. She previously was a smoker. Alcohol use is minimal. FAMILY HISTORY: Unremarkable. MEDICATIONS: As per the computer summary. ALLERGIES: PER THE COMPUTER SUMMARY. PHYSICAL EXAMINATION: GENERAL: The patient is presently alert with stable vital signs. She is fairly sleepy this afternoon, but appropriately communicative, and asked questions that were consistent with her understanding of what was going on. HEENT: Unremarkable. HEART: Regular rhythm. Normal S1 and S2. LUNGS: Clear. BREASTS: Deferred. ABDOMEN: Mildly distended and diffusely tender. RECTAL: Deferred. IMAGING: CT scan, again, was reviewed, and this showed pancolitis with some backwash ileitis. IMPRESSION: Ulcerative colitis that has become refractory to medical management as well as standing by history of her 8 or 9-year period. The patient is also fairly malnourished at this point. PLAN: The plan would be to proceed with a colonoscopy on Wednesday morning with just some enema as a preop prep, more or less to see the extent of disease in the rectum. We will then proceed with a total abdominal colectomy and either ileostomy or ileorectal anastomosis depending on the appearance of the colon. This is certainly a case in which a total proctocolectomy with ileoanal anastomosis would be inappropriate at this point given the acuteness of the presentation and underlying poor nutritional status. She is aware that, down the road, especially if an ileostomy was performed, we would likely get her tuned up medically and, at that point, get her referred to a colorectal surgeon for the ileoanal anastomosis procedure. Potential risks of the procedures coming up including bleeding and perforation at the time of colonoscopy as well as potential complications related to the total abdominal colectomy were all reviewed. There is a remote possibility that there is an underlying malignancy which we are not identifying at this point was also gone over. The patient has poor peripheral venous access at this point in time, and we will place a triple- lumen catheter via the subclavian approach on Wednesday morning at the time of the colonoscopy as well. Colby Umaña MD /[id number]
--- NOTE | 2017-04-05 09:46 | CR ---
Chest 1V Frontal HISTORY: Central line placement COMPARISON: 04/03/2015. FINDINGS: Left-sided central line courses cephalad within the jugular vein the tip is not demonstrat ed on today's study. No pneumothorax. No focal infiltrates.
[2017-04-05] MEDS ORDERED: Neostigmine Methylsulfate 1 MG/ML 5 ML Syringe ONE (09:49)
[2017-04-05] MEDS ORDERED: Rocuronium 50 MG/5 ML Vial ONE (09:49)
[2017-04-05] MEDS ORDERED: Ondansetron 4 MG/2 ML SDV ONE (09:49)
[2017-04-05] MEDS ORDERED: Propofol 200 MG/20 ML SDV ONE (09:49)
[2017-04-05] MEDS ORDERED: Dexamethasone 4 MG/ML SDV ONE (09:49)
[2017-04-05] MEDS ORDERED: Succinylcholine/Normal Saline 200 MG/10 ML Syringe ONE (09:49)
[2017-04-05] MEDS ORDERED: fentaNYL 250 MCG/5 ML SDV ONE (09:49)
[2017-04-05] MEDS ORDERED: Meropenem 500 MG SDV ONE (10:31)
--- NOTE | 2017-04-05 10:43 | OR ---
DATE OF PROCEDURE: 04/04/2017 PREOPERATIVE DIAGNOSES: 1. Indication for central venous access. 2. Ulcerative colitis. OPERATIVE PROCEDURES: 1. Insertion of left subclavian vein triple-lumen catheter. 2. Flexible sigmoidoscopy. ANESTHESIA: Local plus IV sedation. INDICATION FOR PROCEDURE: This is a 41-year-old with ongoing ulcerative colitis and is going to be undergoing a total abdominal colectomy with ileostomy tomorrow. She is fairly malnourished. Plan is to proceed with a central line insertion to provide TPN in the perioperative period, along with a flexible sigmoidoscopy to assess the extent of disease in the rectum. Potential risks of the procedure including bleeding, infection, pneumothorax, and perforation at the time of a stroke were all reviewed, and the patient wishes to proceed. DETAILS OF PROCEDURE: The patient was taken to the operating room and placed in a supine position. IV sedation was administered, after which the upper chest and neck areas were prepped and draped. The left subclavian area was anesthetized with 1% lidocaine. Left subclavian vein cannulated, guidewire was passed and over the guidewire, a triple-lumen catheter positioned. Good in and outflow was noted through the ports, and the ports were flushed with heparinized saline. Catheter was sutured to the skin with some 3-0 silk stitch and dressing applied. Chest x-ray is pending. The patient was in frog-leg and initial digital rectal exam showed a fairly edematous and thickened rectum by digital exam. The scope was then passed up to the rectosigmoid junction. There the patient had an extremely active disease, but no bleeding in the rectum. Photodocumentation was obtained, and the procedure then concluded. Given the findings, the patient will need to have a total abdominal colectomy and end ileostomy tomorrow as it would not appear to be safe to do ileorectal anastomosis. Colby Umaña MD /[id number]
[2017-04-05] MEDS ORDERED: Ketamine 500 MG/5 ML MDV IV SCH (11:00)
[2017-04-05] MEDS ORDERED: cefOXitin 2 GM in Sodium Chloride 0.9% 50 ML IV ONE (11:30)
[2017-04-05] MEDS ORDERED: Sodium Chloride 0.9% 10 ML ONE (11:56)
[2017-04-05] MEDS ORDERED: Scopolamine 1.5 MG Transdermal Patch ONE (12:09)
[2017-04-05] MEDS ORDERED: Lactated Ringers 1,000 ML ONE ×3 (13:22→13:30)
[2017-04-05] MEDS ORDERED: ALPRAZolam 0.5 MG Tab PO PRN (15:10)
--- NOTE | 2017-04-05 15:19 | PN ---
DATE OF SERVICE: 04/04/2017 The patient has been running some low-grade temps, but otherwise feels good. I suspect this is inflammatory response due to the colitis. She is not complaining any dysuria and has completely clear lungs and otherwise looks not at all ill per se. The flexible sigmoidoscopy showed extremely active disease in the rectum, and we will therefore plan to proceed with a total abdominal colectomy with end ileostomy tomorrow as this first-stage procedure and then aim to get the rectum healed up and subsequently set up for an ileoanal anastomosis following the proctocolectomy. The Intra Lumen was placed today and we will begin some TPN and the surgery will be scheduled for tomorrow. We will juice up the abdomen in the morning when she is able to sit up to identify the optimal point for the ileostomy. Colby Umaña MD /[id number]
[2017-04-05] MEDS ORDERED: Naloxone 0.4 MG/ML SDV IV PRN (15:27)
[2017-04-05] MEDS ORDERED: diphenhydrAMINE 50 MG/ML SDV IVPUSH PRN (15:27)
[2017-04-05] MEDS ORDERED: ePHEDrine 50 MG/ML SDV IVPUSH PRN (15:27)
[2017-04-05] MEDS: fentaNYL 2,500 MCG in Sodium Chloride 0.9% 200 ML EPIDUR SCH (15:45)
[2017-04-05] MEDS: Dextrose 5%-Lactated Ringers 1,000 ML IV SCH (16:03)
[2017-04-05] MEDS: cefOXitin 2 GM in Sodium Chloride 0.9% 50 ML IV SCH ×2 (16:06→22:21)
[2017-04-05] MEDS: Pantoprazole 40 MG Vial IV SCH (16:38)
[2017-04-05] MEDS: Metoclopramide 10 MG/2 ML SDV IVPUSH SCH ×2 (16:41→23:49)
[2017-04-05] MEDS: VERIFY SCOPOLAMINE PATCH TOP SCH (16:44)
[2017-04-05] MEDS: Acetaminophen 325 MG Tab PO SCH ×2 (17:35→23:49)
--- NOTE | 2017-04-05 18:41 | PCM.PN ---
- General Info Date of Service: 04/05/17 Functional Status: Reports: pain controlled - Review of Systems General: Reports: Weakness HEENT: Reports: no symptoms Pulmonary: Reports: no symptoms Cardiovascular: Reports: No Symptoms Gastrointestinal: Reports: Abdominal pain Genitourinary: Reports: no symptoms Musculoskeletal: Reports: no symptoms Neurological: Reports: No Symptoms Psychiatric: Reports: no symptoms - Patient Data Vitals - most recent: Last Vital Signs Temp 97.5 F 04/05/17 16:30 Pulse 91 04/05/17 18:00 Resp 18 04/05/17 18:00 BP 119/73 04/05/17 18:00 Pulse Ox 95 04/05/17 18:00 Weight - most recent: 153 lb 3.54 oz I&O - last 24 hours: Intake & Output 04/05/17 04/05/17 04/05/17 06:59 14:59 22:59 Intake Total 3802 255 422 Output Total 4800 2899 675 Balance -518 -0111 -119 Lab Results last 24 hrs: Laboratory Results - last 24 hr 04/05/17 04/05/17 04/05/17 Range/Units 04:30 04:30 04:30 WBC 6.9 (4.5-11.0) K/uL RBC 3.47 (3.30-5.50) M/uL Hgb 9.5 L (12.0-15.0) g/dL Hct 30.8 L (36.0-48.0) % MCV 89 (80-98) fL MCH 27 (27-31) pg MCHC 31 L (32-36) % Plt Count 343 (150-400) K/uL Sodium 142 (140-148) mmol/L Potassium 3.1 L (3.6-5.2) mmol/L Chloride 109 H (100-108) mmol/L Carbon Dioxide 29 (21-32) mmol/L Anion Gap 7.1 (5.0-14.0) mmol/L BUN 4 L (7-18) mg/dL Creatinine 0.6 (0.6-1.0) mg/dL Est Cr Clr Drug Dosing 122.09 mL/min Estimated GFR (MDRD) > 60 (>60) Glucose 119 H (74-106) mg/dL Calcium 7.5 L (8.5-10.1) mg/dL Phosphorus 3.0 (2.5-4.9) mg/dL Magnesium 1.9 (1.8-2.4) mg/dL Total Bilirubin 0.3 (0.2-1.0) mg/dL AST 20 (15-37) U/L ALT 23 (12-78) U/L Alkaline Phosphatase 130 H (46-116) U/L Total Protein 5.1 L (6.4-8.2) g/dL Albumin 1.9 L (3.4-5.0) g/dL Globulin 3.2 (2.3-3.5) g/dL Albumin/Globulin Ratio 0.6 L (1.2-2.2) Blood Type O POSITIVE Gel Antibody Screen Negative Crossmatch See Detail Ron Results last 24 hrs: Microbiology 04/01/17 23:05 Stool Culture - Final Stool / Feces NORMAL ENTERIC FREEMAN. NO SALMONELLA, SHIGELLA, CAMPYLOBACTER OR E.COLI O157 ISOLATED. - Final NEGATIVE FOR SHIGA TOXIN 1 - Final NEGATIVE FOR SHIGA TOXIN 2 04/01/17 18:50 Aerobic Blood Culture - Preliminary Blood - Venous - Lab Draw NO GROWTH AFTER 3 DAYS Anaerobic Blood Culture - Preliminary NO GROWTH AFTER 3 DAYS 04/01/17 18:40 Aerobic Blood Culture - Preliminary Blood - Venous NO GROWTH AFTER 3 DAYS Anaerobic Blood Culture - Preliminary NO GROWTH AFTER 3 DAYS Med Orders - Current: Current Medications Acetaminophen (Tylenol) 650 mg PO Q6H [facility] Last Admin: 04/05/17 17:35 Dose: Not Given Alprazolam (Xanax) 1 mg PO BID PRN PRN Reason: * Alvimopan (Entereg) 12 mg PO BID [facility] Stop: 04/12/17 21:01 Buspirone HCl 10 mg/ Buspirone (HCl 5 mg) 15 mg PO TID [facility] Last Admin: 04/05/17 16:34 Dose: Not Given Diphenhydramine HCl (Benadryl) 50 mg IVPUSH Q6H PRN PRN Reason: ITCHING Ephedrine Sulfate (Ephedrine Sulfate) 5 - 10 mg IVPUSH ASDIRECTED PRN PRN Reason: SBP LESS THAN 100 Heparin Sodium (Porcine) (Heparin Lock Flush 100 Units/Ml) 500 units FLUSH ASDIRECTED PRN PRN Reason: CENTRAL LINE MAINTENCE Last Admin: 04/05/17 14:37 Dose: 500 units Albumin Human 12.5 gm/ Premix 50 mls @ 25 mls/hr IV Q24H [facility] Stop: 04/09/17 07:59 Last Admin: 04/05/17 05:18 Dose: 25 mls/hr Albumin Human 12.5 gm/ Premix 50 mls @ 25 mls/hr IV Q24H [facility] Stop: 04/09/17 09:59 Last Admin: 04/05/17 07:51 Dose: 25 mls/hr Albumin Human 12.5 gm/ Premix 50 mls @ 25 mls/hr IV Q24H [facility] Stop: 04/09/17 12:59 Last Admin: 04/05/17 16:11 Dose: 25 mls/hr Albumin Human 12.5 gm/ Premix 50 mls @ 25 mls/hr IV Q24H [facility] Stop: 04/09/17 13:59 Last Admin: 04/05/17 17:12 Dose: 25 mls/hr Multivitamins/Minerals 10 ml/Chromium/Copper/Manganese/Seleni/Zn 1 ml/ Amino Ac/ Electrol/Dextrose/Calcium 1,011 mls @ 97 mls/hr IV .BY DURATION [facility] Stop: 04/05/17 19:00 Last Admin: 04/05/17 14:27 Dose: 97 mls/hr Amino Ac/Electrol/Dextrose/Calcium (Clinimix E 5/15) 1,000 mls @ 97 mls/hr IV .BY DURATION [facility] Stop: 04/05/17 19:00 Last Admin: 04/05/17 00:34 Dose: 97 mls/hr Fentanyl 2,500 mcg/ Sodium (Chloride) 250 mls @ 0 mls/hr EPIDUR TITRATE [facility]; Titrate PRN Reason: Protocol Last Admin: 04/05/17 15:45 Dose: 16 mls/hr, 16 mls/hr Multivitamins/Minerals 10 ml/Chromium/Copper/Manganese/Seleni/Zn 1 ml/ Amino Ac/ Electrol/Dextrose/Calcium 1,011 mls @ 100 mls/hr IV .BY DURATION [facility] Amino Ac/Electrol/Dextrose/Calcium (Clinimix E 5/15) 1,000 mls @ 100 mls/hr IV .BY DURATION [facility] Dextrose/Lactated Ringer's (Dextrose 5%-Lactated Ringers) 1,000 mls @ 100 mls/ hr IV ASDIRECTED [facility] Last Admin: 04/05/17 16:03 Dose: 100 mls/hr Cefoxitin Sodium 2 gm/ Sodium (Chloride) 50 mls @ 100 mls/hr IV Q6H [facility] Stop: 04/06/17 10:59 Last Admin: 04/05/17 16:06 Dose: 100 mls/hr Mesalamine (Asacol Hd) 1,600 mg PO TID [facility] Last Admin: 04/05/17 16:32 Dose: Not Given Metoclopramide HCl (Reglan) 10 mg IVPUSH Q8H [facility] Last Admin: 04/05/17 16:41 Dose: 10 mg Naloxone HCl (Narcan) 0.1 mg IVPUSH Q5M PRN PRN Reason: RESP RATE LESS THAN 6/MINUTE Naloxone HCl (Narcan) 0.4 mg IV ASDIRECTED PRN PRN Reason: ITCHING Verify Scopolamine (Patch) 0 each TOP DAILY [facility] Last Admin: 04/05/17 16:44 Dose: Not Given Ondansetron HCl (Zofran) 4 mg IVPUSH Q4H PRN PRN Reason: Nausea/Vomiting Last Admin: 04/05/17 07:39 Dose: 4 mg Pantoprazole Sodium (Protonix Iv) 40 mg IV Q24H [facility] Last Admin: 04/05/17 16:38 Dose: 40 mg Scopolamine (Transderm-Scop) 1.5 mg TOP Q72H [facility] Discontinued Medications Acetaminophen (Tylenol) 650 mg PO Q4H PRN PRN Reason: Pain/Fever Last Admin: 04/05/17 02:36 Dose: 650 mg Alprazolam (Xanax) 1 mg PO BID [facility] Last Admin: 04/05/17 08:27 Dose: Not Given Alprazolam (Xanax) 0.5 mg PO Q6H PRN PRN Reason: Anxiety Last Admin: 04/05/17 02:47 Dose: 0.5 mg Dexamethasone (Dexamethasone) Confirm Administered Dose 4 mg .ROUTE .STK-MED ONE Stop: 04/05/17 09:50 Fentanyl (Sublimaze) Confirm Administered Dose 100 mcg .ROUTE .STK-MED ONE Stop: 04/04/17 07:45 Fentanyl (Sublimaze) Confirm Administered Dose 250 mcg .ROUTE .STK-MED ONE Stop: 04/05/17 09:50 Glycopyrrolate () Confirm Administered Dose 1 mg .ROUTE .[facility] ONE Stop: 04/05/17 09:50 Heparin Sodium (Porcine) (Heparin Lock Flush 100 Units/Ml) Confirm Administered Dose 500 units .ROUTE .[facility] ONE Stop: 04/04/17 07:37 Last Admin: 04/04/17 08:17 Dose: 500 units Heparin Sodium (Porcine) (Heparin Lock Flush 100 Units/Ml) Confirm Administered Dose 500 units .ROUTE .[facility] ONE Stop: 04/04/17 18:11 Last Admin: 04/04/17 18:05 Dose: 500 units Heparin Sodium (Porcine) (Heparin Lock Flush 100 Units/Ml) Confirm Administered Dose 500 [address] .[address] .[facility] ONE Stop: 04/05/17 04:39 Last Admin: 04/05/17 04:41 Dose: 500 units Heparin Sodium (Porcine) (Heparin Lock Flush 100 Units/Ml) 500 units FLUSH ASDIRECTED [facility] Potassium Chloride/Dextrose/Sod Cl (D5 Ns With 40 Meq Kcl) 1,000 mls @ 250 mls/ hr IV ASDIRECTED [facility] Last Admin: 04/01/17 22:51 Dose: 250 mls/hr Dextrose/Sodium Chloride (Dextrose 5%-Normal Saline) 1,000 mls @ 150 mls/hr IV ASDIRECTED [facility] Last Admin: 04/05/17 07:39 Dose: 150 mls/hr Albumin Human 12.5 gm/ Premix 50 mls @ 25 mls/hr IV Q2H [facility] Stop: 04/02/17 12:59 Last Admin: 04/02/17 13:30 Dose: 25 mls/hr Sodium Chloride (Normal Saline) 100 mls @ 3.5 mls/sec IV ASDIRECTED [facility] Stop: 04/02/17 12:00 Last Admin: 04/02/17 11:52 Dose: 3.5 mls/sec Albumin Human 12.5 gm/ Premix 50 mls @ 25 mls/hr IV Q2H [facility] Stop: 04/02/17 19:59 Last Admin: 04/02/17 17:57 Dose: 25 mls/hr Potassium Chloride 20 meq/Lidocaine HCl 2 ml/ Sodium Chloride 112 mls @ 56 mls/ hr IV Q2H [facility] Stop: 04/03/17 14:59 Last Admin: 04/03/17 14:13 Dose: 56 mls/hr Cefoxitin Sodium 2 gm/ Sodium (Chloride) 50 mls @ 100 mls/hr IV ONETIME ONE Stop: 04/05/17 11:59 Last Admin: 04/05/17 11:49 Dose: 100 mls/hr Fat Emulsion Intravenous (Intralipid 20%) 100 mls @ 8.3 mls/hr IV ONETIME ONE Stop: 04/05/17 04:02 Last Admin: 04/04/17 17:19 Dose: 8.3 mls/hr Magnesium Sulfate 2 gm/ Premix 50 mls @ 25 mls/hr IV ONETIME ONE Stop: 04/04/17 14:59 Last Admin: 04/04/17 14:50 Dose: 25 mls/hr Potassium Phosphate 15 mmole/ (Sodium Chloride) 255 mls @ 125 mls/hr IV Q2H [facility] Stop: 04/05/17 12:29 Last Admin: 04/05/17 06:49 Dose: 125 mls/hr Potassium Phosphate 15 mmole/ (Sodium Chloride) 255 mls @ 125 mls/hr IV Q2H [facility] Stop: 04/05/17 12:29 Last Admin: 04/05/17 10:54 Dose: 125 mls/hr Sodium Chloride (Normal Saline) Confirm Administered Dose 10 mls @ as directed .ROUTE .STK-MED ONE Stop: 04/05/17 11:57 Acetaminophen (Ofirmev) Confirm Administered Dose 100 mls @ as directed IV .STK- MED ONE Stop: 04/05/17 12:31 Lactated Ringer's (Ringers, Lactated) Confirm Administered Dose 1,000 mls @ as directed .ROUTE .STK-MED ONE Stop: 04/05/17 13:23 Lactated Ringer's (Ringers, Lactated) Confirm Administered Dose 1,000 mls @ as directed .ROUTE .STK-MED ONE Stop: 04/05/17 13:31 Lactated Ringer's (Ringers, Lactated) Confirm Administered Dose 1,000 mls @ as directed .ROUTE .STK-MED ONE Stop: 04/05/17 13:31 Iopamidol (Isovue-300 (61%)) 100 ml IV . DIRECTED PRN PRN Reason: RADIOLOGY EXAM Stop: 04/02/17 12:00 Last Admin: 04/02/17 11:51 Dose: 100 ml Ketamine HCl (Ketalar) 30 mg IV ASDIRECTED [facility] Meropenem (Merrem) Confirm Administered Dose 500 mg .ROUTE .STK-MED ONE Stop: 04/05/17 10:32 Last Admin: 04/05/17 13:11 Dose: 500 mg Midazolam HCl (Versed 1 Mg/Ml) Confirm Administered Dose 2 mg .ROUTE .STK-MED ONE Stop: 04/04/17 07:45 Morphine Sulfate (Morphine Printing Pressman 150 Mg In 30 Ml) 1 mg IV ASDIRECTED PRN; Protocol PRN Reason: Pain Morphine Sulfate (Morphine Printing Pressman 150 Mg In 30 Ml) 0 mg IV ASDIRECTED PRN; Protocol PRN Reason: Pain Stop: 04/05/17 11:00 Last Admin: 04/05/17 07:29 Dose: 150 mg Naloxone HCl (Narcan) 0.1 mg IV ASDIRECTED PRN PRN Reason: RESP DISTRESS Stop: 04/05/17 11:00 Neostigmine Methylsulfate (Neostigmine) Confirm Administered Dose 5 mg .ROUTE .STK-MED ONE Stop: 04/05/17 09:50 Ondansetron HCl (Zofran) Confirm Administered Dose 4 mg .ROUTE .STK-MED ONE Stop: 04/05/17 09:50 Pneumococcal Polyvalent Vaccine (Pneumovax 23) 0.5 ml IM .ONCE ONE Stop: 04/07/17 14:01 Propofol (Diprivan 20 Ml) Confirm Administered Dose 200 mg .ROUTE .STK-MED ONE Stop: 04/04/17 07:45 Propofol (Diprivan 20 Ml) Confirm Administered Dose 200 mg .ROUTE .STK-MED ONE Stop: 04/05/17 09:50 Rocuronium [place] (Zemuron) Confirm Administered Dose 50 mg .ROUTE .STK-MED ONE Stop: 04/05/17 09:50 Scopolamine (Transderm-Scop) Confirm Administered Dose 1.5 mg .ROUTE .STK-MED ONE Stop: 04/05/17 12:10 Sodium Chloride (Saline Flush) 10 ml FLUSH ASDIRECTED PRN PRN Reason: Keep Vein Open Succinylcholine Chloride (Succinylcholine In Ns Pf) Confirm Administered Dose 200 mg .ROUTE .STK-MED ONE Stop: 04/05/17 09:50 - Exam General: other (Lethargic 2nd to s/p surgery) HEENT: Pupils equal, Pupils reactive, EOMI, Mucous membr. moist/pink Lungs: Clear to auscultation, Normal respiratory effort Cardiovascular: Regular Rate, Regular Rhythm Neurological: no new focal deficit - Problem List Review Problem List Initiated/Reviewed/Updated: Yes - Plan Plan:: Assessment/Plan: #1. Ulerative Colitis: Colon resection completed today. Medically stable. #2. Dehydration: Continue with IV fluid #3. Malnutrition: Albumin being replaced. #4. Anemia: Stable. #5. Hypokalemia: K 3.1 needs more K+
[2017-04-06] MEDS: Acetaminophen 325 MG Tab PO SCH ×5 (01:01→23:57)
[2017-04-06] MEDS: fentaNYL 2,500 MCG in Sodium Chloride 0.9% 200 ML EPIDUR SCH (01:43)
[2017-04-06] MEDS ORDERED: HYDROmorphone/Normal Saline 15 MG/30 ML PCA IV STA (02:59)
[2017-04-06] MEDS: cefOXitin 2 GM in Sodium Chloride 0.9% 50 ML IV SCH ×2 (04:44→10:39)
[2017-04-06] MEDS: Albumin 25% 12.5 GM in Premix Bag 1 BAG IV SCH ×4 (05:03→15:08)
[2017-04-06] MEDS: Ondansetron 4 MG/2 ML SDV IVPUSH PRN ×2 (05:07→12:09)
[2017-04-06] MEDS ORDERED: HYDROmorphone/Normal Saline 15 MG/30 ML PCA IV PRN (07:10)
[2017-04-06] MEDS ORDERED: Cyclobenzaprine 10 MG Tab PO PRN (07:38)
[2017-04-06] MEDS: Metoclopramide 10 MG/2 ML SDV IVPUSH SCH ×3 (08:27→23:58)
[2017-04-06] MEDS: busPIRone 10 MG, busPIRone 5 MG PO SCH ×8 (08:28→21:03)
[2017-04-06] MEDS: Mesalamine 800 MG Tab.CR PO SCH ×3 (08:28→21:03)
[2017-04-06] MEDS: Bisacodyl 5 MG Tab PO SCH ×2 (08:30→21:03)
[2017-04-06] MEDS: traMADol 50 MG Tab PO SCH ×3 (08:59→20:01)
[2017-04-06] MEDS: VERIFY SCOPOLAMINE PATCH TOP SCH (09:01)
[2017-04-06] MEDS: 1: AA 5%/Calcium/D15W/Lytes 1,000 ML with MVI, Adult with Vitamin K 10 ML, Chromium/Copp IV SCH ×6 (10:39→20:55)
[2017-04-06] MEDS: Ibuprofen 600 MG Tab PO SCH ×3 (11:08→21:39)
[2017-04-06] MEDS: Pantoprazole 40 MG Vial IV SCH (16:06)
[2017-04-06] MEDS: Dextrose 5%-Lactated Ringers 1,000 ML IV SCH ×2 (16:07→23:51)
[2017-04-06] MEDS ORDERED: Naloxone 0.4 MG/ML SDV IV PRN (16:29)
[2017-04-07] MEDS: traMADol 50 MG Tab PO SCH ×4 (02:00→19:52)
[2017-04-07] MEDS: Ibuprofen 600 MG Tab PO SCH ×4 (03:42→22:28)
[2017-04-07] MEDS: Ondansetron 4 MG/2 ML SDV IVPUSH PRN ×5 (03:56→20:47)
[2017-04-07] MEDS: Acetaminophen 325 MG Tab PO SCH ×3 (05:37→18:31)
[2017-04-07] MEDS: Albumin Human 100 GM in Premix Bag 1 BAG IV SCH ×2 (05:38→09:45)
[2017-04-07] MEDS ORDERED: Meropenem 500 MG SDV ONE (06:40)
[2017-04-07] MEDS: 1: AA 5%/Calcium/D15W/Lytes 1,000 ML with MVI, Adult with Vitamin K 10 ML, Chromium/Copp IV SCH ×6 (06:40→18:37)
[2017-04-07] MEDS ORDERED: Lidocaine 1% with EPINEPHrine 1:100,000 50 ML MDV ONE (06:40)
[2017-04-07] MEDS ORDERED: Bupivacaine 0.5% 50 ML MDV ONE (06:40)
[2017-04-07] MEDS ORDERED: fentaNYL 100 MCG/2 ML SDV ONE (07:04)
[2017-04-07] MEDS ORDERED: Midazolam 1 MG/ML 2 ML SDV ONE (07:04)
[2017-04-07] MEDS ORDERED: Propofol 200 MG/20 ML SDV ONE (07:04)
[2017-04-07] MEDS: Mesalamine 800 MG Tab.CR PO SCH ×3 (08:33→20:55)
[2017-04-07] MEDS: Metoclopramide 10 MG/2 ML SDV IVPUSH SCH ×2 (08:33→16:06)
[2017-04-07] MEDS: busPIRone 10 MG, busPIRone 5 MG PO SCH ×6 (08:33→20:55)
[2017-04-07] MEDS: Bisacodyl 5 MG Tab PO SCH ×2 (08:34→20:55)
[2017-04-07] MEDS: VERIFY SCOPOLAMINE PATCH TOP SCH (08:35)
[2017-04-07] MEDS: Dextrose 5%-Lactated Ringers 1,000 ML IV SCH ×2 (10:32→20:52)
[2017-04-07] MEDS ORDERED: Pneumococcal Polyvalent-23 Vaccine 0.5 ML SDV IM ONE (14:00)
[2017-04-07] MEDS: Pantoprazole 40 MG Vial IV SCH (16:06)
[2017-04-08] MEDS: Acetaminophen 325 MG Tab PO SCH ×6 (00:23→23:10)
[2017-04-08] MEDS: Metoclopramide 10 MG/2 ML SDV IVPUSH SCH ×3 (00:23→16:28)
[2017-04-08] MEDS: VERIFY SCOPOLAMINE PATCH TOP SCH ×2 (00:25→09:17)
[2017-04-08] MEDS: Ondansetron 4 MG/2 ML SDV IVPUSH PRN ×3 (00:34→20:25)
[2017-04-08] MEDS: traMADol 50 MG Tab PO SCH ×4 (02:44→20:27)
[2017-04-08] MEDS: 1: AA 5%/Calcium/D15W/Lytes 1,000 ML with MVI, Adult with Vitamin K 10 ML, Chromium/Copp IV SCH ×9 (02:45→23:05)
[2017-04-08] MEDS: Ibuprofen 600 MG Tab PO SCH ×4 (04:46→21:43)
[2017-04-08] MEDS: Albumin Human 100 GM in Premix Bag 1 BAG IV SCH ×2 (06:07→09:21)
[2017-04-08] MEDS: Dextrose 5%-Lactated Ringers 1,000 ML IV SCH (06:20)
[2017-04-08] MEDS ORDERED: Central Total Parenteral Nutrition Bag SCH (07:45)
[2017-04-08] MEDS: Scopolamine 1.5 MG Transdermal Patch TOP SCH (09:16)
[2017-04-08] MEDS: busPIRone 10 MG, busPIRone 5 MG PO SCH ×6 (09:16→21:43)
[2017-04-08] MEDS: Bisacodyl 5 MG Tab PO SCH ×2 (09:17→21:43)
--- NOTE | 2017-04-08 10:58 | PN ---
DATE OF SERVICE: 04/06/2017 The patient has been afebrile with stable vital signs. 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 We will begin ibuprofen and tramadol today, and hopefully, we will be able to get her over to oral medication exclusively tomorrow, after her delayed primary closure has been completed. Otherwise, she did have some mucusy bloody stools, but her hemoglobin is stable. I will check with pharmacy regarding steroid enemas and will probably start those later today as well, to treat the rectal area. Colby Umaña MD /[id number]
--- NOTE | 2017-04-08 11:28 | PN ---
DATE OF SERVICE: 04/08/2017 SUBJECTIVE: Bre is postop day #3. She has had chronic nausea. She has been on Reglan, has a scopolamine patch and getting Zofran regularly. Pain is controlled. Vital signs have been stable, temp max of 99.1. REVIEW OF SYSTEMS: Remainder of review of systems negative for any pertinent positives and negatives. OBJECTIVE: GENERAL: Bre Lorenzana is a 41-year-old female. She is resting in bed, sleepy. VITAL SIGNS: TPR is 99.1, 111, 16, blood pressure 123/79. HEENT: Negative. NECK: Supple. HEART: Regular rate and rhythm. LUNGS: Clear. ABDOMEN: Dressings dry and intact. Ileostomy is intact. ENEIDA drains have put out 370 and 305 respectively of a light pink serous drainage. ASSESSMENT: 1. Total abdominal colectomy with ileostomy and Nupur's pouch and placement of Vicryl mesh for long-standing ulcerative colitis refractory to medical management and ongoing gastrointestinal bleeding. Date of surgery 04/05/2017. 2. Delayed primary closure 04/07/2017. PLAN: 1. Discontinue oral mesalamine. 2. Discontinue Entereg. 3. Check CBC, CMP, mag, phos in a.m. 4. Continue TPN same rate and content 100 mL/hour. 5. Pharmacy consult in regard to her current medication if there is any medication that could be contributing to her persistent nausea. 6. Good pulmonary toilet encouraged. 7. We will evaluate p.r.n. or in a.m. Michelle Spicer PA-C /[id number]
--- NOTE | 2017-04-08 11:28 | PN ---
DATE OF SERVICE: 04/07/2017 Oral intake is fairly good, and the ostomy is beginning to work. She is a little bit nauseated, and it may be medication-related. She underwent delayed primary closure today and will resume her diet and begin ostomy teaching. Colby Umaña MD /[id number]
--- NOTE | 2017-04-08 14:49 | OR ---
DATE OF PROCEDURE: 04/07/2017 PREOPERATIVE DIAGNOSIS: Open abdominal incision. POSTOPERATIVE DIAGNOSIS: Open abdominal incision. PROCEDURE: Delayed primary closure of open abdominal incision. ANESTHESIA: IV sedation. INDICATION FOR PROCEDURE: A 41-year-old female with 48 hours status post total abdominal colectomy with ileostomy formation. At the time of the procedure, it was felt that she would be at high risk for wound infection if a primary closure was undertaken. Given this, the delayed primary closure will be undertaken at this time. Potential risks of the procedure including bleeding and infection were reviewed and the patient wishes to proceed. DETAILS OF PROCEDURE: The patient was taken to the operating room and placed in a supine position and sitting up somewhat to minimize aspiration risk. The dressing was taken down and the wound was found to be clean. After IV sedation was administered, this was prepped and draped, anesthetized with 1% lidocaine with Marcaine and irrigated with meropenem- containing saline solution. A 10-[place] round Fuentes-Tran drain was placed through a stab wound along the inferior aspect of the incision and the long lower midline incision was then closed with 2 layers of 3-0 and 4-0 Vicryl stitch deep and wale for the skin. The drain was affixed with some 3-0 Vicryl stitch. The patient was taken to the recovery room in satisfactory condition. Colby Umaña MD /[id number]
[2017-04-08] MEDS: Pantoprazole 40 MG Vial IV SCH (16:23)
[2017-04-08] MEDS: Mesalamine Rectal Enema Susp 4 GM/60 ML Bottle RECTAL SCH (20:27)
[2017-04-09] MEDS: Metoclopramide 10 MG/2 ML SDV IVPUSH SCH ×3 (00:06→16:57)
[2017-04-09] MEDS: traMADol 50 MG Tab PO SCH ×4 (03:25→22:11)
[2017-04-09] MEDS: Dextrose 5%-Lactated Ringers 1,000 ML IV SCH ×2 (03:26→14:05)
[2017-04-09] MEDS: Ibuprofen 600 MG Tab PO SCH ×4 (03:26→22:12)
[2017-04-09] MEDS: Acetaminophen 325 MG Tab PO SCH ×3 (05:49→18:10)
[2017-04-09] MEDS: Albumin Human 100 GM in Premix Bag 1 BAG IV SCH ×2 (05:50→09:58)
[2017-04-09] MEDS ORDERED: Central Total Parenteral Nutrition Bag SCH (07:45)
[2017-04-09] MEDS ORDERED: 1: AA 5%/Calcium/D15W/Lytes 1,000 ML with MVI, Adult with Vitamin K 10 ML, Chromium/Copp IV SCH ×3 (09:00)
[2017-04-09] MEDS: VERIFY SCOPOLAMINE PATCH TOP SCH (09:58)
[2017-04-09] MEDS: Bisacodyl 5 MG Tab PO SCH ×2 (09:58→22:12)
--- NOTE | 2017-04-09 10:03 | PN ---
DATE OF SERVICE: 04/09/2017 SUBJECTIVE: Bre is less nauseated. Hemoglobin this morning was 8.3. She did have 5 mL of a light pink serous drainage out of her ENEIDA drain. She is emptying out her ileostomy without any difficulty. She does have the material in her room to start the ileostomy training. Ileostomy did put out 2250 mL. Oral intake was 1170. Pain has been controlled with the CAREER TECHNICAL SUPERVISOR. She has been up ambulating. She did have the mesalamine enema last night. She was able to retain it for about 30 minutes. REVIEW OF SYSTEMS: Remainder of review of systems negative for any pertinent positives or negatives. OBJECTIVE: GENERAL: Bre Lorenzana is a 41-year-old female. She is alert and orientated. Color pale. VITAL SIGNS: TPR 96.8, 91, 16, blood pressure 109/64. HEENT: Negative. NECK: Supple. HEART: Regular rate and rhythm. LUNGS: Clear. ABDOMEN: Dressings dry and intact. Ileostomy in place. EXTREMITIES: Without peripheral edema. ASSESSMENT: 1. Total abdominal colectomy, ileostomy and Nupur's pouch, and placement of Vicryl mesh for long-standing ulcerative colitis refractory to medical management, and ongoing gastrointestinal bleeding. Date of surgery 04/05/2017. 2. Delayed primary closure, 04/07/2017. PLAN: 1. Give 1 unit of packed red blood cells. 2. Consult to Case Management for home health care. 3. Discussion with Gay regarding ordering her ileostomy supplies and continuation of teaching. 4. Check CBC, CMP, mag, and phos in a.m. 5. Continue same TPN rate and content. 6. Discontinue CAREER TECHNICAL SUPERVISOR. 7. Discontinue continuous pulse ox. 8. Dilaudid 2 mg 1 to 2 q.4 hours p.r.n. pain. 9. Good pulmonary toilet encouraged. 10.We will evaluate p.r.n. or in a.m. Michelle Spicer PA-C /[id number]
[2017-04-09] MEDS: HYDROmorphone 2 MG Tab PO PRN ×2 (10:04→18:09)
[2017-04-09] MEDS: busPIRone 10 MG, busPIRone 5 MG PO SCH ×6 (10:05→22:13)
[2017-04-09] MEDS: Magnesium Sulfate/Water 2 GM in Premix Bag 1 BAG IV SCH ×3 (11:51→22:15)
[2017-04-09] MEDS: Pantoprazole 40 MG Vial IV SCH (16:57)
[2017-04-09] MEDS: Ondansetron 4 MG/2 ML SDV IVPUSH PRN (18:13)
[2017-04-09] MEDS: Mesalamine Rectal Enema Susp 4 GM/60 ML Bottle RECTAL SCH (22:13)
[2017-04-10] MEDS: Metoclopramide 10 MG/2 ML SDV IVPUSH SCH ×4 (00:18→20:20)
[2017-04-10] MEDS: Acetaminophen 325 MG Tab PO SCH ×2 (00:18→05:38)
[2017-04-10] MEDS: Ondansetron 4 MG/2 ML SDV IVPUSH PRN ×2 (00:30→05:37)
[2017-04-10] MEDS: traMADol 50 MG Tab PO SCH ×4 (03:54→20:09)
[2017-04-10] MEDS: Ibuprofen 600 MG Tab PO SCH (03:54)
[2017-04-10] MEDS: Magnesium Sulfate/Water 2 GM in Premix Bag 1 BAG IV SCH ×4 (05:24→22:15)
[2017-04-10] MEDS ORDERED: Naloxone 0.4 MG/ML SDV IV PRN (07:29)
[2017-04-10] MEDS ORDERED: HYDROmorphone/Normal Saline 15 MG/30 ML PCA IV PRN (07:29)
[2017-04-10] MEDS: LORazepam 2 MG/ML MDV IVPUSH PRN ×2 (08:45→20:20)
[2017-04-10] MEDS: busPIRone 10 MG, busPIRone 5 MG PO SCH ×6 (08:51→20:31)
[2017-04-10] MEDS: Bisacodyl 5 MG Tab PO SCH ×2 (08:54→20:31)
[2017-04-10] MEDS: VERIFY SCOPOLAMINE PATCH TOP SCH (10:22)
[2017-04-10] MEDS: 1: AA 5%/Calcium/D15W/Lytes 1,000 ML with MVI, Adult with Vitamin K 10 ML, Chromium/Copp IV SCH ×6 (11:03→22:12)
[2017-04-10] MEDS ORDERED: Meperidine 300 MG/30 ML PCA Vial IV PRN (15:39)
[2017-04-10] MEDS: Pantoprazole 40 MG Vial IV SCH (17:58)
[2017-04-10] MEDS: Mesalamine Rectal Enema Susp 4 GM/60 ML Bottle RECTAL SCH (20:30)
[2017-04-11] MEDS: traMADol 50 MG Tab PO SCH ×4 (02:08→20:12)
[2017-04-11] MEDS: Metoclopramide 10 MG/2 ML SDV IVPUSH SCH ×4 (02:08→20:12)
[2017-04-11] MEDS: LORazepam 2 MG/ML MDV IVPUSH PRN ×3 (02:19→21:03)
[2017-04-11] MEDS: Magnesium Sulfate/Water 2 GM in Premix Bag 1 BAG IV SCH ×4 (05:56→23:21)
[2017-04-11] MEDS: Dextrose 5%-Lactated Ringers 1,000 ML IV SCH (06:00)
[2017-04-11] MEDS ORDERED: Lidocaine 1% 20 ML MDV INJECT ONE (06:42)
[2017-04-11] MEDS ORDERED: Meperidine 300 MG/30 ML PCA Vial IV PRN (07:23)
[2017-04-11] MEDS: 1: AA 5%/Calcium/D15W/Lytes 1,000 ML with MVI, Adult with Vitamin K 10 ML, Chromium/Copp IV SCH ×6 (08:17→18:29)
[2017-04-11] MEDS: busPIRone 10 MG, busPIRone 5 MG PO SCH ×6 (08:47→21:05)
[2017-04-11] MEDS: Bisacodyl 5 MG Tab PO SCH ×2 (08:47→21:05)
[2017-04-11] MEDS: Scopolamine 1.5 MG Transdermal Patch TOP SCH (09:02)
--- NOTE | 2017-04-11 11:26 | OR ---
DATE OF PROCEDURE: 04/05/2017 PREOPERATIVE DIAGNOSES: 1. Longstanding ulcerative colitis refractory to medical management. 2. Marked malnutrition. OPERATIVE PROCEDURE: Exploratory laparotomy with, 1. Total abdominal colectomy with end ileostomy and Nupur pouch (62178). 2. Placement of Vicryl mesh to displace small bowel from pelvic and abdominal thayer ([id number]). ANESTHESIA: General plus epidural. INDICATIONS FOR PROCEDURE: A 41-year-old with 8- to 9-year history of more or less continuous ulcerative colitis, which recently has become quite severe. This has been refractory to medical management primarily due to the patient's intolerance to various medications and she is now having ongoing bleeding to the extent requiring transfusions. An anoscopic exam was performed yesterday, which showed very advanced disease in the rectum, and therefore, with this problem in addition to marked malnutrition, the plan would be to proceed with a total abdominal colectomy with end ileostomy and Nupur pouch at this time and we would plan to treat the Nupur pouch with mesalamine and/or steroid enemas postoperatively. A total proctocolectomy with ileoanal anastomosis would appear to be contraindicated. Given the patient's nutritional status, potential risks of procedure including bleeding, infection, leaks from closure of the rectum, possible postoperative bowel obstruction as well as remote possibility of cardiopulmonary, septic, or hemorrhagic complications leading to were discussed, and the patient wishes to proceed. DETAILS OF PROCEDURE: The patient was taken to the operating room and placed in a supine position after an epidural catheter had been placed. General endotracheal anesthesia was induced and a [place] catheter was inserted. The midline incision was extended from about the handsbreadth above the umbilicus to the pubis, was made and carried down through the full-thickness abdominal wall. Upon entering the peritoneal cavity, a general exploration was undertaken. The entire colon and rectum as expected were edematous and boggy, and there was a general edema throughout much of the abdomen. Apart from that, no specific additional pathology was identified. At this point, the peritoneal reflection of the cecum, distal small bowel, and ascending colon were divided and following this were mobilized medially. The omentum was then detached from the transverse colon. Next, the peritoneal reflection of the sigmoid colon and descending colon were taken down and the splenic flexure was mobilized as well. The immobilization process included use of electrocautery as well as blunt dissection. At this point, the distal most small bowel was divided with a MALIA vascular load. On the preoperative CT scan, the patient had a fair bit of backwash ileitis, but the distal most small bowel did not appear to be overtly significantly diseased. Following this, then the mid rectum was encircled and divided with a MALIA black load. The mesenteric attachments to the colon were then sequentially divided with a combination of vascular mesenteric loads and the total abdominal colectomy specimen delivered from the field. The specimen was opened and examined looking for any obvious carcinomas. There was very extensive diffuse disease, but no areas suggestive of malignancy grossly identified. At this point, the premarked location in the right mid abdomen for the ileostomy was identified and using cautery a circular opening in the skin was made. This was carried down through the skin and subcutaneous tissue. The rectus fascia was then divided with a T- shaped type incision and the musculature underlying that was bluntly split and the peritoneum opened. The entrance through the abdominal wall was intentionally made obliquely to minimize ileostomy hernia risk. The small bowel was then brought out through this and there was adequate fit and good blood supply being maintained to the divided ileum. The abdomen was then irrigated with antibiotic-containing saline solution. Two Fuentes-Tran drains were placed along the pericolic gutter areas and from there into the pelvis. The patient will likely at some point have the ileoanal anastomosis procedure done and given us to limit recurrent adhesions. A 12-inch Vicryl mesh was then placed with more of a lasso- type configuration from the base of the mesentery, then inferiorly along the small bowel, then up anteriorly thus displacing away from the pelvic and lower abdominal wall surfaces. Of note, the Nupur pouch was marked with a Prolene stitch left around 2 inches of length to identify it with the anticipated subsequent procedure. The midline fascia was then approximated with #2 Vicryl stitch. The skin and subcutaneous tissue were felt to be at very high risk for a wound infection if primary closure was undertaken, and given this, these were packed open with iodoform gauze. Prior to closure using 3-0 Vicryl stitch, the ileum was attached to the peritoneum and at this point then the divided staple line of the ileum was incised and using combination of interrupted and running 3-0 Vicryl stitches, the ileostomy was matured. Finger examination at the conclusion showed it to be mostly with a good fit and appliance was replaced and the patient was then subsequently taken to the recovery room in satisfactory condition. There were no evident complications. Colby Umaña MD /[id number]
[2017-04-11] MEDS: VERIFY SCOPOLAMINE PATCH TOP SCH (11:35)
[2017-04-11] MEDS: Pantoprazole 40 MG Vial IV SCH (17:21)
[2017-04-11] MEDS: Mesalamine Rectal Enema Susp 4 GM/60 ML Bottle RECTAL SCH (21:04)
[2017-04-12] MEDS: traMADol 50 MG Tab PO SCH ×4 (02:24→21:31)
[2017-04-12] MEDS: Metoclopramide 10 MG/2 ML SDV IVPUSH SCH ×4 (02:24→21:28)
[2017-04-12] MEDS: 1: AA 5%/Calcium/D15W/Lytes 1,000 ML with MVI, Adult with Vitamin K 10 ML, Chromium/Copp IV SCH ×6 (04:57→15:36)
[2017-04-12] MEDS: Magnesium Sulfate/Water 2 GM in Premix Bag 1 BAG IV SCH (05:00)
[2017-04-12] MEDS ORDERED: Trolamine Salicylate/Aloe Vera 10% Crm 85 GM Tube TOP PRN (07:48)
[2017-04-12] MEDS ORDERED: Central Total Parenteral Nutrition Bag SCH (08:00)
[2017-04-12] MEDS: Bisacodyl 5 MG Tab PO SCH ×2 (09:25→21:28)
[2017-04-12] MEDS: busPIRone 10 MG, busPIRone 5 MG PO SCH ×6 (09:25→21:28)
[2017-04-12] MEDS: VERIFY SCOPOLAMINE PATCH TOP SCH (09:26)
--- NOTE | 2017-04-12 09:45 | CR ---
2 view abdomen There is a right lower quadrant ostomy site. There surgical sutures at the right lower quadrant. The re is a stable line midline there is mild distention of small bowel the left upper abdomen. Impression: 1. Possible postoperative ileus.
--- NOTE | 2017-04-12 12:07 | PN ---
DATE OF SERVICE: 04/10/2017 The patient has been afebrile, but she has had quite a bit in the way of emesis over the last 24 hours and reports very little if anything is getting into the ostomy bag. Given this, we will place an NG tube. We will check abdominal x-rays in the morning. I think there is some leaking from one of the ENEIDA drains of some serous fluid, and we will need to suture that or seal it up with fibrin sealant tomorrow if this continues. Otherwise, we will move her TPN up to 100 mL an hour and hopefully the ileus or bowel obstruction will resolve spontaneously with the addition of the NG tube. Colby Umaña MD /[id number]
--- NOTE | 2017-04-12 12:25 | PN ---
DATE OF SERVICE: 04/11/2017 SUBJECTIVE: The patient has been afebrile with stable vital signs. Fortunately, her ileostomy is now emptying quite dramatically and it appears that the ileus and/or obstruction that she was suffering from yesterday is resolved. The nausea has also resolved overnight. We'll give her some clear liquids today with some Ensure Clear and otherwise continue the TPN at the 100 mL an hour rate. Maximize activity and work with pulmonary toilet. We will resume the ostomy teaching then tomorrow. She is still leaking from the ENEIDA drain site and that will be injected with some fibrin sealant this morning. Colby Umaña MD /[id number]
[2017-04-12] MEDS: Ondansetron 4 MG/2 ML SDV IVPUSH PRN (14:07)
[2017-04-12] MEDS ORDERED: 1: AA 5%/Calcium/D15W/Lytes 1,000 ML with MVI, Adult with Vitamin K 10 ML, Chromium/Copp IV SCH ×3 (17:00)
[2017-04-12] MEDS: Pantoprazole 40 MG Vial IV SCH (17:02)
--- NOTE | 2017-04-12 18:13 | PN ---
DATE OF SERVICE: 04/05/2017 SUBJECTIVE: Bre has been on a clear liquid diet and she is getting clear Ensure. She has been tolerating that well. She started having stools through her ileostomy. She had 1980 out. TPN continues to run at 80 mL/hour. She is up, ambulating. Pain has been controlled. OBJECTIVE: GENERAL: Bre Lorenzana is a 41-year-old female. She is alert and orientated. VITAL SIGNS: TPR is 97.5, 89, 16, and blood pressure 111/72. HEENT: Negative. NECK: Supple. HEART: Regular rate and rhythm. LUNGS: Clear. ABDOMEN: Abdomen reveals intact ileostomy and incision looks good. ENEIDA drain intact. ASSESSMENT: 1. Total abdominal colectomy, ileostomy, and Npuur's pouch, placement of Vicryl mesh for long-standing ulcerative colitis refractory to medical management ongoing gastrointestinal bleeding. Date of surgery: 04/05/2017. 2. Delayed primary closure: 04/07/2017. PLAN: 1. Resume ostomy training. 2. Full liquid diet. 3. Discontinue TPN. 4. Good pulmonary toilet. 5. We will evaluate p.r.n. or in a.m. Michelle Spicer PA-C /[id number]
[2017-04-12] MEDS: Mesalamine Rectal Enema Susp 4 GM/60 ML Bottle RECTAL SCH (21:28)
[2017-04-12] MEDS: LORazepam 2 MG/ML MDV IVPUSH PRN (21:28)
[2017-04-13] MEDS: Dextrose 5%-Lactated Ringers 1,000 ML IV SCH ×3 (00:24→20:22)
[2017-04-13] MEDS: Metoclopramide 10 MG/2 ML SDV IVPUSH SCH ×4 (02:30→20:12)
[2017-04-13] MEDS: traMADol 50 MG Tab PO SCH ×4 (02:30→20:13)
[2017-04-13] MEDS: Acetaminophen/oxyCODONE 325-5 MG Tab PO PRN ×4 (08:46→21:17)
[2017-04-13] MEDS: VERIFY SCOPOLAMINE PATCH TOP SCH (08:47)
[2017-04-13] MEDS: busPIRone 10 MG, busPIRone 5 MG PO SCH ×6 (08:47→20:13)
--- NOTE | 2017-04-13 11:17 | PN ---
DATE OF SERVICE: 04/13/2017 The patient has been afebrile with stable vital signs. Oral intake has been fairly good. Ileostomy continues to work satisfactorily. I think we can get rid of the Dulcolax and the Senna Plus at this point with the patient being in the ileostomy status. We'll switch her over to oral Percocet today for pain and continue with the ostomy teaching. We will offer the patient home care with regard to the ostomy issue and she may be ready for discharge home tomorrow. Did have some probable phlebitis in the jugular vein with the line going up into the neck. It was removed and feels quite a bit better this morning. White count is 16,000, but she has so much going on from an inflammatory response standpoint, this probably is not too meaningful and given the general good appearance in terms of clinical status. Colby Umaña MD /[id number]
[2017-04-13] MEDS ORDERED: Pantoprazole 40 MG Tab.CR PO SCH (16:30)
[2017-04-13] MEDS: LORazepam 2 MG/ML MDV IVPUSH PRN (20:12)
[2017-04-13] MEDS: Mesalamine Rectal Enema Susp 4 GM/60 ML Bottle RECTAL SCH (20:13)
[2017-04-14] MEDS: traMADol 50 MG Tab PO SCH ×2 (01:21→07:32)
[2017-04-14] MEDS: Metoclopramide 10 MG/2 ML SDV IVPUSH SCH ×2 (01:22→07:32)
[2017-04-14] MEDS: Acetaminophen/oxyCODONE 325-5 MG Tab PO PRN (07:32)
[2017-04-14] MEDS ORDERED: Metoclopramide 10 MG Tab PO PRN (08:20)
[2017-04-14] MEDS: busPIRone 10 MG, busPIRone 5 MG PO SCH ×2 (08:39)
[2017-04-14] MEDS: Scopolamine 1.5 MG Transdermal Patch TOP SCH (08:39)
[2017-04-14] MEDS: VERIFY SCOPOLAMINE PATCH TOP SCH (09:30)
[2017-04-14 09:51] VITALS: BP 103/60
--- NOTE | 2017-04-15 01:29 | DISCH ---
ADMISSION DIAGNOSES: 1. Malnutrition. 2. Anemia. 3. Dehydration. 4. Ulcerative colitis. DISCHARGE DIAGNOSES: 1. Total abdominal colectomy, ileostomy and Nupur's pouch. Placement of Vicryl mesh for long-standing ulcerative colitis refractory to medical management and ongoing gastrointestinal bleeding. Date of surgery 04/05/2017. 2. Delayed primary closure 04/07/2017. HISTORY: Bre Lorenzana is a 41-year-old female with 8- to 9-year history of intermittent continuous ulcerative colitis which recently became quite severe. Ulcerative colitis is refractory to medical management. After preoperative evaluation and discussion of possible risks and possible complications, she wished to proceed with surgical procedure. HOSPITAL COURSE: Bre had her surgery on 04/05/2017. She had no operative complications. On postop day #1, she remained n.p.o. with ice chips. She did have a triple- lumen subclavian inserted. Throughout her hospitalization, she did receive TPN therapy for added nutrition. She was started on a diet with persistent nausea. She had scheduled Reglan throughout her hospitalization. She was started on a regular diet, but then developed a partial ileus versus bowel obstruction over the weekend on 04/10/2017 which resolved with backing off on her diet and resting her GI tract. On 04/11, she started back with clear liquid diet with Ensure Clear protein supplement 3 times daily. On 04/13, she was resumed regular diet and changed to oral pain medication and TPN was discontinued and she was able to be discharged to home on 04/14/2017. Throughout her hospital stay, Bre received 4 units of packed red blood cells for hemoglobin of 8.5 due to colonic blood loss with ulcerative colitis. PHYSICAL EXAMINATION: GENERAL: Bre Lorenzana is a 41-year-old female. VITAL SIGNS: Height is 5 feet 6.93 inches. Weight is 143 pounds. TPR is 97.1, 86, 16. Blood pressure 107/62. HEENT: Negative. NECK: Supple. HEART: Regular rate and rhythm. LUNGS: Clear. ABDOMEN: Karina in place. Ileostomy right mid abdomen is intact. Draining a more solid stool. Her stools shows some consistency to it today and her ileostomy bag is holding and is intact. No skin breakdown. EXTREMITIES: Without peripheral edema. Bre received adequate ileostomy care and she showed competency in self care and management of her ileostomy when she goes home. DISPOSITION: Discharged to home with home health care. FOLLOWUP APPOINTMENT: With Colby Umaña MD on 04/21/2017 at 10:00 a.m. DISCHARGE MEDICATIONS: New prescriptions: 1. Percocet 5/325 mg 1 to 2 tabs every 4 hours p.r.n. pain #50. 2. Mesalamine ([place]asa) 4 g rectally daily at 2000 for 30 days. 3. Reglan 10 mg p.o. q.6 hours p.r.n. nausea. 4. Zofran 4 mg q.4 hours p.r.n. #30 p.r.n. nausea. 5. Scopolamine patch 1.5 patch to remove in 3 days. 6. Tramadol 50 mg q.6h p.r.n. pain #50. She is to resume her home medications. 1. Alprazolam 1 mg twice daily p.r.n. anxiety. 2. Discontinue naproxen. 3. BuSpar 22 mg oral twice daily. DISCHARGE DIET: Usual diet as tolerated. Drink 8 to 10 glasses of water a day. ACTIVITY: As tolerated. DISCHARGE INSTRUCTIONS: No lifting greater than 10 pounds for 6 weeks[address]riving, do not drive on pain medication. May shower. Notify provider of fever, increased pain, nausea, or vomiting. Keep site clean and dry. Change ileostomy bag as directed. See copy of patient's education forms at home. All prescriptions of ileostomy supplies were completed and signed by Colby Umaña prior to discharge
--- NOTE | 2017-04-21 15:10 | OR ---
DATE OF PROCEDURE: 04/05/2017 ADDENDUM: POSTOPERATIVE DIAGNOSIS: Cyst associated with right salpinx. OPERATIVE PROCEDURE: Right salpingectomy. DETAILS OF PROCEDURE: As an additional finding, the patient was noted to have a cystic lesion in the right uterine tube. Given this, it was excised. This appeared to be most likely benign parenchymal cyst but excision may be warranted I am uncertain of that. This was accomplished with a single firing of the MALIA stapler and the specimen delivered from the field intact. Of note, the left ovary and tube were entirely normal in appearance. Colby Umaña MD /[id number]
--- NOTE | 2017-04-26 10:44 | PN ---
DATE OF SERVICE: 04/12/2017 The patient has been afebrile with stable vital signs. Her oral intake is beginning to improve, and the ileostomy continues to function satisfactorily. The incision is clean. We will continue the TPN, backing down on that somewhat in terms of rate. The patient is having no further drainage from the ENEIDA site, which was injected with fibrin sealant yesterday; otherwise maximize activity, work with pulmonary toilet. We will begin more intensified ileostomy care training. Colby Umaña MD /[id number]
== END 2017-04-14 12:19 | disposition home health service (06) | DRG 330 ==
LOC: JP.2SS 15:59
PROVIDERS: ADMIT Internal Medicine; ATTEND Surgery
PROC: 30233N1 Transfusion of Nonautologous Red Blood Cells into Peripheral Vein, Percutaneous Approach (ICD-10-PCS; principal; 2017-04-01)
PROC: 30233N1 Transfusion of Nonautologous Red Blood Cells into Peripheral Vein, Percutaneous Approach (ICD-10-PCS; 2017-04-02)
PROC: 30233N1 Transfusion of Nonautologous Red Blood Cells into Peripheral Vein, Percutaneous Approach (ICD-10-PCS; 2017-04-03)
PROC: 0DJD8ZZ Inspection of Lower Intestinal Tract, Via Natural or Artificial Opening Endoscopic (ICD-10-PCS; 2017-04-04)
PROC: 05HN33Z Insertion of Infusion Device into Left Internal Jugular Vein, Percutaneous Approach (ICD-10-PCS; 2017-04-04)
PROC: 0DTE0ZZ Resection of Large Intestine, Open Approach (ICD-10-PCS; 2017-04-05)
PROC: 3E0M05Z Introduction of Adhesion Barrier into Peritoneal Cavity, Open Approach (ICD-10-PCS; 2017-04-05)
PROC: 0D1B0Z4 Bypass Ileum to Cutaneous, Open Approach (ICD-10-PCS; 2017-04-05)
PROC: 0UT50ZZ Resection of Right Fallopian Tube, Open Approach (ICD-10-PCS; 2017-04-05)
PROC: 0DSP0ZZ Reposition Rectum, Open Approach (ICD-10-PCS; 2017-04-05)
PROC: 0WQF0ZZ Repair Abdominal Wall, Open Approach (ICD-10-PCS; 2017-04-07)
PROC: 30233N1 Transfusion of Nonautologous Red Blood Cells into Peripheral Vein, Percutaneous Approach (ICD-10-PCS; 2017-04-09)
DX: K51.90 Ulcerative colitis, unspecified, without complications (principal); E46 Unspecified protein-calorie malnutrition; K92.2 Gastrointestinal hemorrhage, unspecified; K56.7 Ileus, unspecified; E86.0 Dehydration; Z68.22 Body mass index [BMI] 22.0-22.9, adult; E87.6 Hypokalemia; M54.9 Dorsalgia, unspecified; G89.29 Other chronic pain; F32.9 Major depressive disorder, single episode, unspecified; F41.9 Anxiety disorder, unspecified; H54.7 Unspecified visual loss; Z87.891 Personal history of nicotine dependence; Z91.048 Other nonmedicinal substance allergy status; Z48.1 Encounter for planned postprocedural wound closure; N83.8 Other noninflammatory disorders of ovary, fallopian tube and broad ligament; D50.0 Iron deficiency anemia secondary to blood loss (chronic)
CPT/HCPCS: 36415; 36430; 71010; 71010-26; 74020; 74020-26; 74176; 74177; 74177-26; 80048; 80053; 81001; 82378; 83735; 84100; 85025; 85027; 85730; 86850; 86900; 86901; 86920; 86922; 87040; 87046; 87493; 87899; 88112; 88305; 88307; 94762; A9270-GY; C1781; C9113; J0131; J0694; J1100; J1170; J1642; J2060; J2175; J2185; J2250; J2270; J2405; J2704; J2765; J3010; J3475; J3480; J3490; J7030; J7042; J7050; J7120; P9016; P9047; Q9967

== ENCOUNTER 2022-04-19 02:01 | Emergency (ER) | payer MEDICAID ==
[2022-04-19 02:30] VITALS: BP 120/72; PULSE 94
[2022-04-19 02:58] LABS: ESTIMATED GFR 93 mL/min (>60)
[2022-04-19] MEDS ORDERED: Sodium Chloride 0.9% 10 ML Syringe FLUSH PRN (03:26)
[2022-04-19] MEDS ORDERED: Acetaminophen 325 MG Tab PO ONE (03:30)
[2022-04-19] MEDS ORDERED: Ibuprofen 400 MG Tab PO ONE (03:30)
== END 2022-04-19 03:55 | disposition home or self-care (01) ==
LOC: JP.ED 02:01
DX: K04.7 Periapical abscess without sinus (principal); N30.01 Acute cystitis with hematuria; F17.210 Nicotine dependence, cigarettes, uncomplicated; Z91.018 Allergy to other foods; Z79.899 Other long term (current) drug therapy; Z90.49 Acquired absence of other specified parts of digestive tract; Z20.822 Contact with and (suspected) exposure to COVID-19
CPT/HCPCS: 36415; 74019; 80053; 81001; 82728; 83605; 83615; 84145; 85025; 85379; 86140; 87635; 99283; A9270; 99282; U0002

== ENCOUNTER 2022-04-20 16:15 | Emergency (ER) | payer MEDICAID ==
[2022-04-20] MEDS ORDERED: Ondansetron 4 MG/2 ML SDV IVPUSH ONE ×2 (17:05→19:24)
[2022-04-20] MEDS ORDERED: HYDROmorphone 0.5 MG/0.5 ML Syringe IVPUSH ONE (17:06)
[2022-04-20] MEDS: Sodium Chloride 0.9% 1,000 ML IV SCH ×2 (17:14→19:30)
[2022-04-20 17:26] LABS: ESTIMATED GFR 93 mL/min (>60)
[2022-04-20] MEDS ORDERED: Iopamidol 612 MG/ML 100 ML Bottle IV PRN (17:38)
[2022-04-20] MEDS ORDERED: Sodium Chloride 0.9% 100 ML IV SCH (17:45)
[2022-04-20] MEDS ORDERED: HYDROmorphone 1 MG/ML Syringe IVPUSH ONE (19:24)
[2022-04-20] MEDS ORDERED: Sodium Chloride 0.9% 1,000 ML IV SCH (19:30)
[2022-04-20 21:58] VITALS: BP 111/72; PULSE 82
[2022-04-20] MEDS ORDERED: Prochlorperazine 10 MG Tab PO ONE (22:20)
[2022-04-20] MEDS ORDERED: Acetaminophen/HYDROcodone 325-5 MG Tab PO ONE (22:42)
== END 2022-04-20 22:50 | disposition home or self-care (01) ==
LOC: JP.ED 16:15
DX: K52.9 Noninfective gastroenteritis and colitis, unspecified (principal); F17.210 Nicotine dependence, cigarettes, uncomplicated
CPT/HCPCS: 36415; 74177; 80053; 81001; 83690; 85025; 86140; 96361; 96374; 96375; 96376; 99281; 99284; A9270; J1170; J2405; J3490; J7030; Q0164; Q9967

== ENCOUNTER 2023-04-16 08:56 | Emergency (ER) | payer MEDICAID ==
[2023-04-16] MEDS ORDERED: Ketorolac 30 MG/ML SDV IM ONE (10:04)
[2023-04-16 10:15] LABS: BASOPHILS ABSOLUTE AUTO 0.03 K/uL (0.00-0.10); BASOPHILS PERCENT AUTO 0.4 % (0.1-1.3); EOSINOPHILS ABSOLUTE AUTO 0.12 K/uL (0.00-0.40); EOSINOPHILS PERCENT AUTO 1.6 % (0.0-5.4); HEMATOCRIT 36.7 % (34.3-46.0); HEMOGLOBIN 12.4 g/dL (11.2-15.5); IMMATURE GRAN PERCENT AUTO 0.3 % (0.0-0.7); LYMPHOCYTES ABSOLUTE AUTO 2.26 K/uL (0.8-3.3); LYMPHOCYTES PERCENT AUTO 30.6 % (11.4-47.7); MEAN CORPUSCULAR HEMOGLOBIN 31.3 pg (31.6-35.5); MEAN CORPUSCULAR HGB CONC 33.8 g/dL (31.6-35.5); MEAN CORPUSCULAR VOLUME 92.7 fL (81.4-99.0); MONOCYTES ABSOLUTE AUTO 0.38 K/uL (0.20-0.90); MONOCYTES PERCENT AUTO 5.1 % (3.3-12.6); NEUTROPHILS ABSOLUTE AUTO 4.57 K/uL (1.0-7.6); PLATELET COUNT,PLT 209 K/uL (130-375); RED BLOOD CELL COUNT 3.96 M/uL (3.77-5.24); WHITE BLOOD CELL COUNT,WBC 7.4 K/uL (3.2-11.0)
[2023-04-16 10:21] LABS: IMMATURE GRAN ABSOLUTE AUTO 0.02 K/uL (0.00-0.23)
[2023-04-16 10:23] VITALS: BP 114/70; PULSE 69
[2023-04-16 10:40] LABS: ANION GAP 12.1 mmol/L (5.0-14.0); CALCIUM 8.3 mg/dL (8.5-10.1); CREATININE 0.8 mg/dL (0.6-1.0); EST CRCL DRUG DOSING (CG) 83.13 mL/min; POTASSIUM,K 4.1 mmol/L (3.6-5.2)
== END 2023-04-16 12:48 | disposition home or self-care (01) ==
LOC: JP.ED 08:56
DX: R07.89 Other chest pain (principal); Z91.048 Other nonmedicinal substance allergy status; Z91.018 Allergy to other foods; Z72.0 Tobacco use
CPT/HCPCS: 36415; 71046; 80048; 84484; 85025; 96372; 99285; J1885

== ENCOUNTER 2023-08-02 15:47 | Emergency (ER) | payer MEDICAID ==
[2023-08-02 19:37] VITALS: BP 125/84; PULSE 80
== END 2023-08-02 19:16 | disposition left against medical advice (07) ==
LOC: JP.ED 15:47
DX: Z53.21 Procedure and treatment not carried out due to patient leaving prior to being seen by health care provider (principal)